=== PATIENT | male | born 1940 | race African-American/Black ===

== ENCOUNTER 2017-10-09 11:10 | Inpatient (IN) | payer OTHER ==
[~2017-10-09] VITALS: Ht 180.3 cm; Wt 72.6 kg
--- NOTE | ~2017-10-09 | HC ---
[facility] [place] [address] CONSULTATION Name: SHANNA RINCON Room #: 353-P [facility] IN M.R.#: [id number] Admission: 10/09/17 Attend Phys: Ace Yeung MD Discharge: Date of : 44 Report #: [id number] THIS REPORT FOR: //name// CC: Ace Evans DATE OF SERVICE: 10/10/2017 HISTORY OF PRESENT ILLNESS: The patient is a 77-year-old -Iranian male admitted with slurred speech, mental status changes, fall x 2, right-sided weakness. He has been seen by Neurology. MRI showed evidence of some small old strokes, bilateral lacunar infarct, old left cerebellar infarct, but no acute cerebral processes. MRA does show moderate left proximal ICA stenosis. He is being further evaluated and we are seeing him in rehabilitation medicine consultation. PAST MEDICAL HISTORY: Includes some end-stage renal disease, although he denies that he ever been on dialysis. Creatinine during this hospitalization is at 1.8 with admission 2.1. He has a history of diabetes mellitus and hypertension. He has had prior remote CVAs and has had problems with some residual left-sided weakness. MEDICATIONS: Please see the full medication listing. ALLERGIES: No known drug allergies. HABITS: No history of tobacco or alcohol abuse. SOCIAL HISTORY: Lives with sister, 15 steps to the main floor. He is a premorbid cane ambulator. Sister works roving department supervisor. REVIEW OF SYSTEMS: Denied any chest pain, shortness of breath, or abdominal discomfort. Denied any focal extremity pain complaints. Notes he is right handed. Did not offer any complaints of headaches or bowel or bladder changes. PHYSICAL EXAMINATION: GENERAL: A 77-year-old -Iranian male, in no obvious distress. VITAL SIGNS: Last recorded temperature 97.4, pulse 82, respirations 16, and blood pressure 108/58. NEUROLOGIC: The patient is alert. He has poor dentition. He follows basic commands, appeared to be able to verbalize reasonably well. EOMs appeared to be full. Facies were symmetric. EXTREMITIES: Upper extremities, he has functional range of motion of both upper extremities. Strength is grade 4-/5. DTRs are trace to 1. Lower extremities, functional range of motion with strength grade 4-/5. He did reasonably well with simultaneous stimulation of both upper and lower extremities. Sit to stand [facility] [address] [place] [address] CONSULTATION Name: SHANNA RINCON Room #: 353-P [facility] IN M.R.#: [id number] Admission: 10/09/17 Attend Phys: Ace Yeung MD Discharge: Date of : 42 Report #: [id number] was contact guard assistance and he was noted to ambulate 4 steps front-wheeled walker, min assist. ASSESSMENT: A 77-year-old -Iranian male with the following problem list: 1. Slurred speech with initial extremity weakness, which has been noted to resolve. MRI and MRA are negative for acute stroke. 2. 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 3. Chronic renal insufficiency. 4. Diabetes mellitus type 2. 5. Hypertension. PLAN: Therapy evaluations are underway. We will be glad to follow along with you regarding rehab therapy needs. <ELECTRONICALLY SIGNED> By: Buddy Tellez MD 10/11/17 1108 1240 0116 Buddy Tellez MD /PMT
--- NOTE | ~2017-10-09 | EKG ---
[address] [place] [address] ELECTROCARDIOGRAM REPORT Name: SHANNA RINCON Room #: 353-P ADM IN M.R.#: [id number] Admission: 10/09/17 Attend Phys: Ace Yeung MD Discharge: Date of : 42 Report #: [id number] THIS REPORT FOR: //name// [facility] ED Test Date: 2017-10-09 Test Time: 11:55:49 Pat Name: SHANNA RINCON Department: Room: [facility] Gender: M Director Radio: Amber CHAVEZ : 1940 Requested By: Mike Maria Order Number: [id number] MD: Ramsey Daly Measurements Intervals [place] Rate: 77 P: -43 CO: 172 QRS: -10 QRSD: 101 T: -3 QT: 385 QTc: 436 Interpretive Statements Sinus rhythm Atrial premature complex Electronically Signed On 10-09-2017 21:16:59 REAL ESTATE DEVELOPER by Ramsey Daly [email or web address] <ELECTRONICALLY SIGNED> By: Ramsey Daly MD 10/09/17 2116 1155 1155 MD FERNANDO Frost
--- NOTE | ~2017-10-09 | EEG ---
[facility] [place] [address] ELECTROENCEPHALOGRAM Name: SHANNA RINCON Room #: 353-P ADM IN M.R.#: [id number] Admission: 10/09/17 Attend Phys: Ace Yeung MD Discharge: Date of : 42 Report #: [id number] THIS REPORT FOR: //name// CC: [facility] DATE OF SERVICE: 10/10/2017 DATE OF EE10/10/2017. This patient had an episode of confusion and EEG is being done to further evaluate that. EEG was done by placing the electrodes by standard 10-20 system of electrode placement. Both referential and sequential montages were used for recording. Background activity in this patient's EEG is about 10 Hz and 40 microvolts. This patient became drowsy and that is associated with bilateral slowing and vertex sharp waves. Photic stimulation was unremarkable. Throughout the record, no active epileptiform activity was noticed. IMPRESSION: This patient's EEG is unremarkable. Thank you very much for this referral. <ELECTRONICALLY SIGNED> By: Ar Solomon MD 10/11/17 0734 56 2134 Ar Solomon MD /nt
--- NOTE | ~2017-10-09 | HC ---
[facility] [address] CONSULTATION Name: SHANNA RINCON Room #: 353-P [facility] IN M.R.#: [id number] Admission: 10/09/17 Attend Phys: Ace Yeung MD Discharge: 10/11/17 Date of : 44 Report #: [id number] THIS REPORT FOR: //name// CC: Ace Evans DATE OF SERVICE: 10/09/2017 HISTORY OF PRESENT ILLNESS: This is a 77-year-old male patient who was seen by me in the Emergency Room. Subsequently, I saw him here. He was admitted with slurred speech. His history is quite poor. Apparently, he was not able to talk and had some right-sided weakness. The speech was moderately impaired and the weakness was relatively mild. He indicates he has improved since it happened. REVIEW OF SYSTEMS: Indicate that he said he had strokes in the past. It is not clear where he went for his strokes. Earlier the family was there, but now none of the family member is here. That makes the history very difficult. It does look like he has a history of hypertension and diabetes, but he does not provide any more history in that regard. REVIEW OF SYSTEMS: A 14-point review of system was carried out from the record by talking to him and earlier when the family member was here. That was his relevant 14-point review of system. PAST MEDICAL HISTORY: Positive for stroke, but further history is not available. FAMILY HISTORY: Negative for seizures. SOCIAL HISTORY: Lives with his sister. PHYSICAL EXAMINATION: His examination was carried out multiple times. His speech has improved. His last exam indicates that he can talk. He can tell me what month it is. His memory is moderately impaired, but that I think is his baseline, but his speech has improved. 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 He moves all 4 extremities. He does not cooperate with the sensation or reflexes. He does not appear to have atrial fibrillation. He is a well-built individual who does not have any dysmorphic features of eyes, ears and face. His pulses are difficult to feel. He does not appear to be in atrial fibrillation. His blood pressure is 108/59, respiration is 24, pulse is 88. LABORATORY DATA: Indicate normal white count. His sodium is a little bit low at 135. His BUN is 34, creatinine is 2.2. His albumin is 3.3. He did have an MRI of the brain and neck and that was reviewed. MRA of the neck was not done. [address] [address] CONSULTATION Name: SHANNA RINCON Room #: 353-P [facility] IN [facility].#: [id number] Admission: 10/09/17 Attend Phys: Ace Yeung MD Discharge: 10/11/17 Date of : 42 Report #: [id number] IMPRESSION: Difficult to tell what this patient had. It is possible he had some transient ischemic attacks, also possible he had some seizures secondary to his previous strokes. We will do some further workup. RECOMMENDATION: I discussed with him in detail in the afternoon and this time and I will get an MRA. I will get an EEG. I will get some more blood workup in this patient and see what we need to do. Combining the time I spent in the ER and here more than 50 minutes of vxoe-xa-firl time was spent taking care of this patient today and majority of that time was spent counseling the patient and the family when they were available in the Emergency Room. <ELECTRONICALLY SIGNED> By: Ar Solomon MD 10/14/17 1107 [id number] Ar Solomon MD /nt
[2017-10-09 11:22] VITALS: BP 102/61
[2017-10-09 11:39] LABS: HEMOGLOBIN 9.3 gm/dL (14.0-18.0); MCV 58.2 fL (80.0-100.0)
[2017-10-09 11:41] LABS: HEMATOCRIT 31.1 % (42.0-52.0); MCH 17.5 pg (26.0-34.0); RBC 5.34 mil/uL (4.50-6.00); RDW 21.8 % (10.5-14.5); WBC 8.4 thou/uL (4.0-11.0)
[2017-10-09 11:42] LABS: ANION GAP 13 mmol/L (7-16); BUN 34 mg/dL (7-18); CALCIUM 9.9 mg/dL (8.5-10.1); CHLORIDE 100 mmol/L (98-107); CO2 22 mmol/L (21-32); CREATININE 2.1 mg/dL (0.7-1.3); SODIUM 135 mmol/L (136-145)
[2017-10-09 11:46] LABS: POC CA IONIZED 5.2 mg/dL (4.5-5.3); POC CREATININE 2.2 mg/dL (0.6-1.3); POC HEMOGLOBIN 10.2 g/dL (14.0-18.0); POC POTASSIUM 4.9 mmol/L (3.5-5.1)
[2017-10-09 11:47] LABS: GLUCOSE 116 mg/dL (74-106); MANUAL DIFF YES
[2017-10-09 11:48] LABS: PLATELET COUNT 272 thou/uL (150-400)
[2017-10-09 11:52] LABS: ALBUMIN 3.3 g/dL (3.4-5.0); ALKALINE PHOSPHATASE 92 U/L (46-116); SGOT 21 U/L (15-37); SGPT 21 U/L (30-65); TOTAL BILIRUBIN 0.2 mg/dL (<0.1-1.0); TROPONIN-I < 0.04 ng/mL (<0.06)
[2017-10-09 12:04] LABS: ABSOLUTE NEUTROPHILS 7.2 thou/uL (1.4-8.2); TOTAL CELL COUNT 100
[2017-10-09 12:05] LABS: ANISOCYTOSIS 2+; HYPOCHROMASIA 3+; MICROCYTES 3+; OVALOCYTES FEW
[2017-10-09 12:06] LABS: SCHISTOCYTES FEW
[2017-10-09] MEDS ORDERED: LISINOPRIL-HCT1 EAC2 PO (12:17)
[2017-10-09] MEDS ORDERED: CATAPRES0.2 MG PO (12:17)
[2017-10-09] MEDS ORDERED: HYDRALAZINE 2525 MG PO (12:18)
[2017-10-09] MEDS ORDERED: METFORMIN HCL500 MG PO (12:18)
[2017-10-09] MEDS ORDERED: VITAMIN D250000 UNIT PO (12:21)
[2017-10-09] MEDS ORDERED: ASPIRIN81 M2 PO (12:21)
[2017-10-09] MEDS ORDERED: CARDURA4 MG PO (12:22)
[2017-10-09] MEDS ORDERED: CLOTRIMAZOLE 1%15 G1 TOP (12:24)
[2017-10-09 13:48] VITALS: BP 100/64
[2017-10-09 14:19] VITALS: BP 98/71
[2017-10-09 14:35] VITALS: BP 118/68
[2017-10-09 19:21] VITALS: BP 108/59
[2017-10-10] VITALS (7 sets, daily range): BP systolic 96–140; BP diastolic 50–71
[2017-10-10 01:22] LABS: URINE BILIRUBIN NEGATIVE (Negative); URINE BLOOD NEGATIVE (Negative); URINE COLOR YELLOW; URINE GLUCOSE-RANDOM* NEGATIVE (Negative); URINE KETONES NEGATIVE (Negative); URINE NITRITE NEGATIVE (Negative); URINE PROTEIN (DIPSTICK) NEGATIVE (Negative); URINE UROBILINOGEN 0.2 E.U./dl (0.2-1.0)
[2017-10-10 05:56] LABS: HEMOGLOBIN 8.8 gm/dL (14.0-18.0); MCH 17.6 pg (26.0-34.0); MCHC 30.5 g/dL (28.0-37.0); MCV 57.6 fL (80.0-100.0); RBC 5.04 mil/uL (4.50-6.00); RDW 21.3 % (10.5-14.5); WBC 6.3 thou/uL (4.0-11.0)
[2017-10-10 06:04] LABS: CALCIUM 9.4 mg/dL (8.5-10.1); CREATININE 1.8 mg/dL (0.7-1.3); POTASSIUM 4.8 mmol/L (3.5-5.1)
[2017-10-10 06:41] LABS: TSH 1.251 uIU/mL (0.358-3.740)
[2017-10-11 02:09] LABS: GLYCOHEMOGLOBIN (HGB A1C) 5.6 % (4.8-5.6)
[2017-10-11 04:20] VITALS: BP 104/64
[2017-10-11 07:00] LABS: CHOLESTEROL 176 mg/dL (<200); HDL CHOLESTEROL 56 mg/dL (>40); LDL CHOLESTEROL 106 mg/dL (<100); TC:HDL 3.1 Ratio (Not establshd); TRIGLYCERIDE 71 mg/dL (<150); VLDL 14 mg/dL (<40)
[2017-10-11 07:42] VITALS: BP 134/73
[2017-10-11 11:24] VITALS: BP 130/65
[2017-10-11 15:37] VITALS: BP 125/63
[2017-10-11] MEDS ORDERED: ADULT LOW DOSE81 MG PO (17:21)
[2017-10-11] MEDS ORDERED: NICOTINE TRANSD14 M1 TRANSDERM (17:21)
[2017-10-14 14:07] LABS: SYPHILIS AB Negative (Negative)
== END 2017-10-11 18:36 | DRG 91 ==
LOC: ER 11:10 → EROBS 13:25 → 3W 13:25
PROVIDERS: Hospitalist; Physician Assistant; Psychiatry & Neurology Neuromuscular Medicine
DX: R47.81 Slurred speech (principal); N17.0 Acute kidney failure with tubular necrosis; I12.0 Hypertensive chronic kidney disease with stage 5 chronic kidney disease or end stage renal disease; I69.354 Hemiplegia and hemiparesis following cerebral infarction affecting left non-dominant side; E11.22 Type 2 diabetes mellitus with diabetic chronic kidney disease; D64.9 Anemia, unspecified; F17.210 Nicotine dependence, cigarettes, uncomplicated; I65.22 Occlusion and stenosis of left carotid artery; Z91.81 History of falling
CPT/HCPCS: 10779

== ENCOUNTER 2017-11-12 12:27 | Inpatient (IN) | payer OTHER ==
[~2017-11-12] VITALS: Ht 180.3 cm; Wt 73.0 kg
--- NOTE | ~2017-11-12 | HC ---
[facility] [place] [address] CONSULTATION Name: SHANNA RINCON Room #: 404-P [facility] IN M.R.#: [id number] Admission: 11/12/17 Attend Phys: Cristóbal Redman MD Discharge: 11/15/17 Date of : 42 Report #: [id number] THIS REPORT FOR: //name// CC: Abe Redman DATE OF SERVICE: 11/12/2017 HISTORY OF PRESENT ILLNESS: This is a 77-year-old male patient who was admitted with an episode of syncope. This patient was getting occupational therapy when he passed out. There is no tonic-clonic activity noted, but he was dazed for some time. He got fed up and he did not want to do the further testing. His stroke was on the left side when it happened. Today, it was more episode of passing out, one was in sitting position, one was in lying down position and he was unresponsive for a few minutes. No tonic-clonic activity was noticed. He feels back to his baseline now. REVIEW OF SYSTEMS: Indicate that this patient had a stroke. He was in the hospital with left-sided weakness. At that time, he had multiple testing done. He had an MRI, which demonstrates old strokes, but no acute strokes. He did have a carotid Doppler, which showed about 60% stenosis, similar finding was noticed on the MRA. As mentioned above, he refused further testing. I do not see any echocardiogram in his chart and that was probably not done because he refused further testing. This patient was subsequently sent to rehab and he did reasonably well there. REVIEW OF SYSTEMS: Positive for stroke. There had been a question of seizure versus encephalopathy in this patient. I carried out 14-point review of systems partly from him, partly from the record and that was his relevant 14-point review of system. Presently, he also has renal problems and his blood pressure is running low. He is going to be seen by Renal. He had prior CVA with left-sided weakness. PAST MEDICAL HISTORY: Positive for stroke. FAMILY HISTORY: Negative for early age stroke. SOCIAL HISTORY: He does not smoke or drink any alcohol. PHYSICAL EXAMINATION: Indicate that he is alert. He is responsive. He is oriented. His speech, concentration, fund of knowledge and memory is about the same. Cranial nerve examination 2-12 was attempted. His cooperation is poor, but I do not see much focality there. He is somewhat weak in the left side, but that is his baseline. His tone looks symmetrical. His reflexes are symmetrical. He has no meningeal sign. There is no cerebellar sign. I could not look at the fundus because he could not cooperate. He is moderately-built [facility] [address] [place] [address] CONSULTATION Name: SHANNA RINCON Room #: 404-P [facility] IN M.R.#: [id number] Admission: 11/12/17 Attend Phys: Cristóbal Redman MD Discharge: 11/15/17 Date of : 42 Report #: [id number] individual who does not have any dysmorphic features of eyes, ears and face. His vision and hearing looks adequate. His cardiac examination does not appear to be showing any atrial fibrillation or abnormality of the heart sound. He had no respiratory difficulty or rhonchi. His pulses are difficult to feel. He has no edema, cyanosis or jaundice. His blood pressure is 117/65, pulse is 85, temperature is not taken and oxygen saturation is 100%. LABORATORY DATA: Indicate sodium of 137 and he did have labs during last time with a normal B12 and thyroid function test. IMPRESSION: This episode was most likely related to the patient's hypertension and renal failure. Sister says that he does not drink enough fluid. That is what I think we need to work on at the moment. I will get an EEG done and if EEG shows some seizure activity, then we will give him some medication. I will reassess that need tomorrow. RECOMMENDATIONS: 1. EEG. 2. We cannot do any further workup in this patient at the moment because of kidney failure. 3. Sometime along the line, he should be referred to the vascular surgeon for monitoring of his carotid stenosis. 4. We will see how he does with the hydration depending upon EEG, may or may not give him a trial with seizure medication. Thank you very much for this referral and if you have any question, please feel free to contact me. <ELECTRONICALLY SIGNED> By: Ar Solomon MD 11/18/17 1815 1728 00 Ar Solomon MD /nt
--- NOTE | ~2017-11-12 | H ---
[facility] [place] [address] HISTORY AND PHYSICAL Name: SHANNA RINCON Room #: 170-9 ADM IN M.R.#: [id number] Admission: 11/12/17 Attend Phys: Cristóbal Redman MD Discharge: Date of : 42 Report #: [id number] THIS REPORT FOR: //name// CC: Abe Redman DATE OF SERVICE: 11/12/2017 CHIEF COMPLAINT: Dizziness and syncope. HISTORY OF PRESENT ILLNESS: The patient is a 77-year-old male with history of hypertension, diabetes, history of CVA in the past, who was recently admitted here at [facility] for left-sided weakness, slurred speech, and fall and discharged from rehabilitation center on 10/23/2017, was brought into the Emergency Room because of a syncopal episode. The patient was originally admitted at [facility] with slurred speech, mental status changes, fall and right-sided weakness. He was seen by neurologist. The MRI showed evidence of small old stroke, bilateral lacunar stroke. MRA showed moderate left proximal ICA stenosis. Clinically, he had encephalopathy with cognitive changes. The patient also had issues with dysphagia at that time. The patient was then transferred to a rehab center and discharged on 10/23/2017. The patient was on mechanical soft/thin liquid at that time. Apparently today, the patient was working with the occupational therapist when he felt dizzy, lightheaded and then, he passed out. During the first episode, the patient fell from the standing position; the second episode, he just slid off his bed. He was staring and he was unresponsive for a few minutes according to the family. The patient has chronic left-sided weakness. He says his left leg is weaker than usual. Denies any headache, no visual changes, denies any chest pain at present. No shortness of breath. No fever or chills. PAST MEDICAL HISTORY: Significant for CVA with left-sided weakness, chronic renal disease, diabetes, hypertension, chronic bilateral lacunar infarct by MRI, chronic left lateral cerebral artery infarct. No history of any peptic ulcer disease or bleeding disorder. SOCIAL HISTORY: No smoking, alcohol abuse or anything or drug abuse. The patient lives with his sister, normally walks with help of a walker. According to the patient's sister, the patient has been noncompliant with his medication. FAMILY HISTORY: Significant for hypertension. REVIEW OF SYSTEMS: CONSTITUTIONAL: He denies any recent weight loss or weight gain. No fever or chills. EYES: [place] [address] HISTORY AND PHYSICAL Name: SHANNA RINCON Room #: 1709 [facility] IN ..#: [id number] Admission: 11/12/17 Attend Phys: Cristóbal Redman MD Discharge: Date of : 42 Report #: [id number] THROAT: Denies any sore throat. CARDIOVASCULAR: As above. RESPIRATORY: No cough or expectoration. GASTROINTESTINAL: No nausea, vomiting, abdominal pain. GENITOURINARY: No dysuria, hematuria. Denies any urinary hesitancy. NEUROLOGIC: As above. PSYCHIATRIC: No anxiety or depression. A 12-point review of system is negative other than the positive and the negative dictated in the history of present illness and the review of systems. PHYSICAL EXAMINATION: VITAL SIGNS: Blood pressure is 117/65, heart rate is 85 per minute, afebrile. GENERAL: The patient is awake and alert, not in acute respiratory distress. EYES: Pupils are equal and reactive to light. Pupils are around 1.5 mm. THROAT: He has a dry oral mucosa. NECK: Supple, no JVD, no bruit, no lymphadenopathy. CARDIOVASCULAR SYSTEM: S1, S2, no S3, no murmur. CHEST: Bilateral air entry present. Clear on auscultation. ABDOMEN: Soft, bowel sounds present, no mass, no organomegaly, no tenderness. PERIPHERY: No pedal edema. No calf tenderness. Dorsalis pedis 1+ bilaterally. NEUROLOGICAL: No facial asymmetry noted. Pupils equal, reactive to light. Extraocular movements intact. Power is 5/5 in the upper extremity. Power is 3-4/5 in the left leg, 5/5 in the right leg. LABORATORY DATA: Reviewed. A CT of the brain showed no evidence of any bleed. There is no evidence of any new stroke. There are evidence of chronic small vessel ischemic changes and chronic infarct in the anterior left cerebellar hemisphere and lacunar infarct in the basal ganglia. His BUN and creatinine are significantly elevated at 63 and 2.7. His BUN and creatinine on 10/23/2017 were 30 and 1.8. Calcium is 10.4, glucose is 134. PT, PTT are within normal limit. White count is 6.7, hemoglobin is 8.9. Hemoglobin was 8.8 on 10/23/2017. He did have anemia before, platelet is 203. EKG showed normal sinus rhythm, no significant changes. Then, he had a chest x-ray done, which showed no acute cardiopulmonary process. He had workup done last admission on 10/10/2017. His renal ultrasound was normal. He had an MRI of the brain, which showed evidence of old superior left cerebral lacunar infarct. No acute cerebral process. ASSESSMENT AND PLAN: 1. Episodes of syncope, dizziness. Most likely secondary to orthostatic hypotension. The patient's blood pressure has been running a little bit on the low end in the Emergency Room. The patient will be hydrated with IV fluid. We will closely monitor his orthostatic vital signs. We will discontinue his antihypertensive medication at present. 2. Acute renal failure. His baseline creatinine is 1.7. His creatinine is [facility] [address] [place] [address] HISTORY AND PHYSICAL Name: SHANNA RINCON Room #: 170-9 [facility] IN ..#: [id number] Admission: 11/12/17 Attend Phys: Cristóbal Redman MD Discharge: Date of : 42 Report #: [id number] markedly elevated today to 2.7. The patient will be hydrated with IV fluid and repeat of his labs in the morning. We will consult Nephrology. We will also obtain a bladder scan. 3. Possible urinary tract infection. We will obtain postvoid bladder scan. We will also continue with IV ceftriaxone, follow urine culture and adjust antibiotic as needed. 4. Left leg weakness could be secondary to his previous stroke. We will obtain an MRI to rule out any new stroke. He will be continued on aspirin. Neurologist will also be consulted. 5. Deep venous thrombosis prophylaxis. He will be placed on SCD on the leg for deep venous thrombosis prophylaxis. 6. History of hypertension. We will hold off on lisinopril/hydrochlorothiazide secondary to his acute renal failure. His blood pressure is also on the low end at present. 7. Diabetes. We will discontinue metformin because of his renal failure. We will follow blood sugars and cover with sliding scale insulin. We will check on A1c level and the lipids. Treatment plan has been explained to the patient and family at bedside in detail. <ELECTRONICALLY SIGNED> By: Cristóbal Redman MD 11/12/17 1709 1601 1628 Cristóbal Redman MD /nt
--- NOTE | ~2017-11-12 | 2DMMODE ---
[facility] [address] [place] [address] 2 D/M-MODE ECHOCARDIOGRAM Name: SHANNA RINCON Room #: 404-P ADM IN M.R.#: [id number] Admission: 11/12/17 Attend Phys: Gloria Valdes Discharge: Date of : 44 Date of Service: 11/13/17 0954 Report #: [id number] THIS REPORT FOR: //name// APPROVED REPORT Study performed: 11/13/2017 09:01:39 EXAM: Comprehensive 2D, Doppler, and color-flow Echocardiogram Patient Location: Bedside Room #: 404 Status: routine BSA: 1.90 HR: 80 bpm BP: 129/78 mmHg Other Information Study Quality: Adequate Indications Diabetes Dizziness and Vertigo Syncope Hypertension/HDD 2D Dimensions RVDd: 30.74 mm LVEF(%): 63.70 (>50%) IVSd: 11.50 (7-11mm) LVOT Diam: 20.94 (18-24mm) LVDd: 40.27 mm PWd: 12.43 (7-11mm) Ascending Ao: 34.49 (22-36mm) LVDs: 26.51 (25-40mm) Aortic Root: 30.69 mm IVC: 19.00 mm Bee's LVEF: 63.70 % Volumes Left Atrial Volume (Systole) Single Plane 4CH: 50.32 mL Single Plane 2CH: 38.17 mL LA ESV Index: 26.00 mL/m2 Aortic Valve AoV Peak Sebastián.: 1.10 m/s AO Peak Gr.: 4.88 mmHg LVOT Max P.70 mmHg LVOT Max V: 0.96 m/s ARI Vmax: 3.00 cm2 Mitral Valve [facility] [address] [place] [address] 2 D/M-MODE ECHOCARDIOGRAM Name: SHANNA RINCON Room #: 404-P [facility] IN .R.#: [id number] Admission: 11/12/17 Attend Phys: Gloria Valdes Discharge: Date of : 44 Date of Service: 11/13/17 0954 Report #: [id number] E/A Ratio: 0.8 MV Decel. Time: 217.10 ms MV E Max Sebastián.: 0.84 m/s MV A Sebastián.: 1.01 m/s MV PHT: 62.96 ms IVRT: 115.34 ms Pulmonary Valve PV Peak Sebastián.: 1.00 m/s PV Peak Gr.: 4.00 mmHg Pulmonary Vein P Vein S: 0.40 m/s P Vein A: 0.24 m/s P Vein D: 0.27 m/s P Vein A Dur.: 78.4 msec P Vein S/D Ratio: 1.48 Tricuspid Valve TR Peak Sebastián.: 2.60 m/s TR Peak Gr.: 26.98 mmHg PA Pressure: 32.00 mmHg Left Ventricle The left ventricle is normal size. Mild concentric left ventricular hypertrophy. The left ventricular systolic function is normal. The left ventricular ejection fraction is within the normal range. LVEF is 60-65%. Grade I - abnormal relaxation pattern. Right Ventricle The right ventricle is normal size. The right ventricular systolic function is normal. Atria The left atrium size is normal. The right atrium size is normal. Aortic Valve The aortic valve is normal in structure. Aortic valve is mildly thickened. No aortic regurgitation is present. There is no aortic valvular stenosis. Mitral Valve The mitral valve is normal in structure. Mild mitral regurgitation. No evidence of mitral valve stenosis. Tricuspid Valve The tricuspid valve is normal in structure. There is trace tricuspid regurgitation. Estimated PAP 32 mmHg. There is mild pulmonary [facility] [address] [place] [address] 2 D/M-MODE ECHOCARDIOGRAM Name: SHANNA RINCON Room #: 404-P [facility] IN .R.#: [id number] Admission: 11/12/17 Attend Phys: Gloria Valdes Discharge: Date of : 44 Date of Service: 11/13/17 0954 Report #: [id number] hypertension. Pulmonic Valve The pulmonary valve is normal in structure. There is no pulmonic valvular regurgitation. Great Vessels The aortic root is normal in size. IVC is normal in size and collapses >50% with inspiration. Pericardium There is no pericardial effusion. <Conclusion> The left ventricle is normal size. LVEF is 60-65%. The aortic valve is normal in structure. Aortic valve is mildly thickened. No aortic regurgitation is present. There is no aortic valvular stenosis. The mitral valve is normal in structure. Mild mitral regurgitation. The tricuspid valve is normal in structure. There is trace tricuspid regurgitation. Estimated PAP 32 mmHg. There is mild pulmonary hypertension. The pulmonary valve is normal in structure. There is no pericardial effusion. <ELECTRONICALLY SIGNED> By: Paulino Peralta MD 11/13/17 0954 0954 0954 Paulino Peralta MD /INF
--- NOTE | ~2017-11-12 | EKG ---
[address] [address] ELECTROCARDIOGRAM REPORT Name: SHANNA RINCON Room #: 170-9 ADM IN M.R.#: [id number] Admission: 11/12/17 Attend Phys: Cristóbal Redman MD Discharge: Date of : 44 Report #: [id number] THIS REPORT FOR: //name// [facility] ED Test Date: 2017-11-12 Test Time: 12:50:46 Pat Name: SHANNA RINCON Department: Room: 170 Gender: M Loading Machine Adjuster: NICOLLE : 1940 Requested By: Yuri Adam Order Number: [id number] MD: Ramsey Daly Measurements Intervals [place] Rate: 89 P: 79 FL: 163 QRS: 64 QRSD: 82 T: 65 QT: 351 QTc: 428 Interpretive Statements Sinus rhythm Compared to ECG 10/09/2017 11:55:49 Atrial premature complex(es) no longer present Electronically Signed On 11-12-2017 15:33:28 TIP FIXER by Ramsey Daly [email or web address] <ELECTRONICALLY SIGNED> By: Ramsey Daly MD 11/12/17 1533 1250 1250 Ramsey Daly MD /MANUELITO
--- NOTE | ~2017-11-12 | HC ---
[facility] [place] [address] CONSULTATION Name: SHANNA RINCON Room #: 404-P [facility] IN M.R.#: [id number] Admission: 11/12/17 Attend Phys: Cristóbal Redman MD Discharge: 11/15/17 Date of : 44 Report #: [id number] THIS REPORT FOR: //name// CC: Abe Redman DATE OF SERVICE: 11/12/2017 ATTENDING PHYSICIAN: Cristóbal Redman MD. REASON FOR CONSULTATION: Acute on chronic kidney disease. HISTORY OF PRESENT ILLNESS: This patient is followed by a tuyere fitter at a different hospital chronically as an outpatient with CKD and a baseline creatinine of about 2. He was recently hospitalized at this hospital with the sequelae of frequent lacunar strokes, mental status changes, underwent a rehab stay, improved and went home, but has gradually deteriorated. He has been home for about 2-1/2 weeks, has gotten weaker and more confused with increasing disabilities, a couple of presyncopal episodes today and he is readmitted. PAST MEDICAL HISTORY: Multiple previous strokes with cognitive impairment, both chronic and acute; longstanding hypertension; chronic kidney disease; history of diabetes; previous left lateral cerebral infarcts. SOCIAL HISTORY: He is a heavy smoker, has been smoking, now has been on a nicotine patch since his last admission a couple of weeks ago. FAMILY HISTORY: Positive for hypertension. REVIEW OF SYSTEMS: GENERAL: He has been failing. EYES: His vision has been okay. ENT: Hearing okay, swallows okay. ENDOCRINE: Positive for diabetes. RESPIRATORY: Easily short-winded with diagnosis of chronic emphysema. CARDIAC: No history of coronary disease, heart failure, or palpitations. GASTROINTESTINAL: Appetite has been somewhat poor. GENITOURINARY: Denies dysuria or hematuria. NEUROLOGIC: Multiple strokes as mentioned, difficulty walking and getting around, uses a cane, really needs a walker. PHYSICAL EXAMINATION: GENERAL: This is a chronically ill-appearing, somewhat confused gentleman, in no acute distress. SKIN: Unremarkable. SKELETAL: Elderly, frail-appearing. [facility] [address] [place] [address] CONSULTATION Name: SHANNA RINCON Room #: 404-P [facility] IN M.R.#: [id number] Admission: 11/12/17 Attend Phys: Cristóbal Redman MD Discharge: 11/15/17 Date of : 44 Report #: [id number] HEENT: Extraocular movements are full, sclerae are muddy. Mucous membranes are dry. NECK: Supple. Neck veins are a bit distended. CHEST: Shows diminished breath sounds. HEART: Regular. ABDOMEN: Soft and nontender. EXTREMITIES: Show trace brawny lower extremity edema. LABORATORY DATA: Hemoglobin is 8.9, white count 6.7, platelets 203. Urinalysis shows bacteria and some white cells. Sodium 137, potassium 4.3, chloride 103, bicarbonate 25, , at the time of last discharge. X-rays include CT of the head without contrast, which was personally reviewed, showed no acute intracranial process. A chest x-ray, which was clear. ASSESSMENT: 1. Acute on chronic kidney disease. He appears to have some degree of volume depletion. His blood pressure is on the low side after having chronic hypertension. Blood pressure medications will be held. IV fluids will be given, some gentle saline. 2. Multiple strokes with cognitive impairment. 3. Presyncopal episodes. His blood pressure appears to have been over-controlled and we will be cutting back on his blood pressure medications. 4. Emphysema with cigarette smoking. Nicotine patch 14 mg per day has been prescribed. <ELECTRONICALLY SIGNED> By: Robin Kinsey MD 11/17/17 1609 1844 2244 Robin Kinsey MD /nt
[~2017-11-12 12:27] MED LIST: ADULT LOW DOSE81 MG PO; ASPIRIN81 M2 PO; CARDURA4 MG PO; CATAPRES0.2 MG PO; CLARITIN10 MG PO; CLOTRIMAZOLE 1%15 G1 TOP; FLONASE 0.05%50 MCG NASAL; HYDRALAZINE 2525 MG PO; LISINOPRIL-HCT1 EAC2 PO; MELATONIN5 M1 PO; METFORMIN HCL500 MG PO; NICOTINE TRANSD14 M1 TRANSDERM; PROTONIX 20 MG20 M1 PO; VITAMIN D250000 UNIT PO
[2017-11-12 12:32] VITALS: BP 112/62
[2017-11-12 13:38] LABS: HEMATOCRIT 29.2 % (42.0-52.0); HEMOGLOBIN 8.9 gm/dL (14.0-18.0); MCH 16.9 pg (26.0-34.0); MCHC 30.5 g/dL (28.0-37.0); MCV 55.4 fL (80.0-100.0); RBC 5.27 mil/uL (4.50-6.00); RDW 21.5 % (10.5-14.5); WBC 6.7 thou/uL (4.0-11.0)
[2017-11-12 13:41] LABS: ANION GAP 9 mmol/L (7-16); BUN 63 mg/dL (7-18); CALCIUM 10.4 mg/dL (8.5-10.1); CHLORIDE 103 mmol/L (98-107); CO2 25 mmol/L (21-32); CREATININE 2.7 mg/dL (0.7-1.3); GLUCOSE 134 mg/dL (74-106); POTASSIUM 4.3 mmol/L (3.5-5.1); SODIUM 137 mmol/L (136-145)
[2017-11-12 13:50] LABS: TROPONIN-I < 0.04 ng/mL (<0.06)
[2017-11-12 13:51] LABS: APTT 28.7 Seconds (24.5-32.8)
[2017-11-12 14:29] LABS: URINE BILIRUBIN NEGATIVE (Negative); URINE BLOOD NEGATIVE (Negative); URINE CLARITY CLEAR; URINE COLOR YELLOW; URINE GLUCOSE-RANDOM* NEGATIVE (Negative); URINE KETONES NEGATIVE (Negative); URINE NITRITE-REFLEX NEGATIVE (Negative); URINE PROTEIN (DIPSTICK) NEGATIVE (Negative); URINE SPECIFIC GRAVITY 1.025 (1.005-1.035); URINE UROBILINOGEN 0.2 E.U./dl (0.2-1.0)
[2017-11-12 14:33] LABS: URINE LEUKOCYTES-REFLEX 1+ (Negative)
[2017-11-12 14:47] LABS: BACTERIA-REFLEX 1-9 Few /HPF (None Seen); CASTS None Seen /LPF (None Seen); CRYSTALS None Seen /LPF (None Seen); SQUAMOUS 0-3 Few /LPF (0-3); URINE RBC None Seen /HPF (0-2); URINE WBC-REFLEX 6-15 Few /HPF (0-5)
[2017-11-12 17:56] VITALS: BP 106/65
[2017-11-12 20:00] VITALS: BP 110/72
[2017-11-13 04:00] VITALS: BP 129/78
[2017-11-13 05:18] LABS: HEMATOCRIT 28.2 % (42.0-52.0); WBC 5.6 thou/uL (4.0-11.0)
[2017-11-13 05:20] LABS: HEMOGLOBIN 8.7 gm/dL (14.0-18.0); MCHC 30.9 g/dL (28.0-37.0); MCV 55.1 fL (80.0-100.0); RBC 5.12 mil/uL (4.50-6.00); RDW 21.7 % (10.5-14.5)
[2017-11-13 05:46] LABS: ANION GAP 8 mmol/L (7-16); BUN 49 mg/dL (7-18); CALCIUM 9.8 mg/dL (8.5-10.1); CHLORIDE 107 mmol/L (98-107); CHOLESTEROL 204 mg/dL (<200); CO2 25 mmol/L (21-32); CREATININE 1.8 mg/dL (0.7-1.3); GLUCOSE 85 mg/dL (74-106); HDL CHOLESTEROL 71 mg/dL (>40); LDL CHOLESTEROL 124 mg/dL (<100); MAGNESIUM 2.1 mg/dL (1.8-2.4); PHOSPHORUS 4.2 mg/dL (2.5-4.9); POTASSIUM 4.8 mmol/L (3.5-5.1); SODIUM 140 mmol/L (136-145); TC:HDL 2.9 Ratio (Not establshd); TRIGLYCERIDE 46 mg/dL (<150); VLDL 9 mg/dL (<40)
[2017-11-13 05:55] LABS: SERUM ASSESSMENT Clear
[2017-11-13 07:50] LABS: ABSOLUTE NEUTROPHILS 3.2 thou/uL (1.4-8.2); ANISOCYTOSIS 2+; HYPOCHROMASIA 3+; MICROCYTES 3+; SCHISTOCYTES FEW
[2017-11-13 07:51] LABS: PLATELET COUNT 208 thou/uL (150-400)
[2017-11-13 08:00] VITALS: BP 110/74
[2017-11-13 15:48] VITALS: BP 129/74
[2017-11-13 20:00] VITALS: BP 128/83
[2017-11-14] VITALS: BP 131/78
[2017-11-14 04:00] VITALS: BP 147/85
[2017-11-14 06:17] LABS: ALBUMIN 2.9 g/dL (3.4-5.0); CALCIUM 9.4 mg/dL (8.5-10.1); CREATININE 1.3 mg/dL (0.7-1.3); PHOSPHORUS 3.2 mg/dL (2.5-4.9); POTASSIUM 4.9 mmol/L (3.5-5.1)
[2017-11-14 07:39] VITALS: BP 143/91
[2017-11-14] MEDS ORDERED: CEFUROXIME250 MG PO (10:34)
[2017-11-14 16:22] VITALS: BP 132/84
[2017-11-14 19:42] VITALS: BP 140/83
[2017-11-15 04:40] VITALS: BP 148/86
[2017-11-15 09:46] VITALS: BP 121/70
[2017-11-15 15:43] VITALS: BP 142/89
[2017-11-15 16:46] VITALS: BP 142/89
== END 2017-11-15 17:10 | disposition home health service (06) | DRG 683 ==
LOC: ER 12:27 → EROBS 15:09 → 4N 15:09 → ENTRNSPT 11-15 17:00 → 4N 11-15 17:10
PROVIDERS: Emergency Medicine; Hospitalist; Internal Medicine
DX: N17.0 Acute kidney failure with tubular necrosis (principal); N39.0 Urinary tract infection, site not specified; I69.354 Hemiplegia and hemiparesis following cerebral infarction affecting left non-dominant side; I12.0 Hypertensive chronic kidney disease with stage 5 chronic kidney disease or end stage renal disease; I95.1 Orthostatic hypotension; N18.6 End stage renal disease; E11.22 Type 2 diabetes mellitus with diabetic chronic kidney disease; G31.84 Mild cognitive impairment of uncertain or unknown etiology; J43.9 Emphysema, unspecified; E86.9 Volume depletion, unspecified; D64.9 Anemia, unspecified; Z79.82 Long term (current) use of aspirin; Z79.899 Other long term (current) drug therapy; Z82.49 Family history of ischemic heart disease and other diseases of the circulatory system
CPT/HCPCS: 10790

== ENCOUNTER 2018-03-19 13:15 | Inpatient (IN) | payer OTHER ==
[~2018-03-19] VITALS: Ht 180.3 cm; Wt 72.1 kg
--- NOTE | ~2018-03-19 | EKG ---
[address] [address] ELECTROCARDIOGRAM REPORT Name: SHANNA RINCON Room #: 349-I ADM IN M.R.#: [id number] Admission: 03/19/18 Attend Phys: Cristóbal Redman MD Discharge: Date of : 44 Report #: [id number] THIS REPORT FOR: //name// [facility] ED Test Date: 2018-03-19 Test Time: 15:00:37 Pat Name: SHANNA RINCON Department: Room: Gender: M Extension Service Advisor: rchampinw : 1940 Requested By: Luca Jackson Order Number: [id number] MD: Ramsey Daly Measurements Intervals [place] Rate: 82 P: 75 DE: 172 QRS: 55 QRSD: 91 T: 69 QT: 373 QTc: 436 Interpretive Statements Sinus rhythm Compared to ECG 11/12/2017 12:50:46 No significant changes Electronically Signed On 03-19-2018 17:06:09 CDT by Ramsey Daly [email or web address] <ELECTRONICALLY SIGNED> By: Ramsey Daly MD 03/19/18 1706 1500 Gris Daly MD /MANUELITO
[~2018-03-19 13:15] MED LIST changes: +CEFUROXIME250 MG PO
[2018-03-19 13:19] VITALS: BP 88/51
[2018-03-19 14:23] LABS: ANION GAP 6 mmol/L (7-16); BUN 40 mg/dL (7-18); CALCIUM 9.2 mg/dL (8.5-10.1); CHLORIDE 102 mmol/L (98-107); CO2 26 mmol/L (21-32); CREATININE 2.5 mg/dL (0.7-1.3); GLUCOSE 90 mg/dL (74-106); POTASSIUM 4.5 mmol/L (3.5-5.1); SODIUM 134 mmol/L (136-145)
[2018-03-19 14:26] LABS: HEMATOCRIT 23.5 % (42.0-52.0); MCH 12.9 pg (26.0-34.0); MCHC 26.6 g/dL (28.0-37.0); PLATELET COUNT 184 thou/uL (150-400); RBC 4.84 mil/uL (4.50-6.00); RDW 25.1 % (10.5-14.5); WBC 6.6 thou/uL (4.0-11.0)
[2018-03-19 14:27] LABS: MCV 48.6 fL (80.0-100.0)
[2018-03-19 14:29] LABS: HEMOGLOBIN 6.3 gm/dL (14.0-18.0)
[2018-03-19 14:32] LABS: ALBUMIN 3.1 g/dL (3.4-5.0); SGOT 23 U/L (15-37); SGPT 19 U/L (30-65); TOTAL BILIRUBIN 0.2 mg/dL (<0.1-1.0); TOTAL PROTEIN 6.7 g/dL (6.4-8.2); TROPONIN-I < 0.04 ng/mL (<0.06)
[2018-03-19 15:03] LABS: ANISOCYTOSIS 3+
[2018-03-19 15:04] LABS: BURR CELLS 1+; HYPOCHROMASIA 3+; MICROCYTES 3+; OVALOCYTES OCCASIONAL; POIKILOCYTOSIS 3+; POLYCHROMASIA 2+; SCHISTOCYTES 2+; TARGET CELLS 2+; TEARDROPS OCCASIONAL
[2018-03-19 15:18] VITALS: BP 112/67
[2018-03-19 16:27] LABS: % SATURATION 3 % (20-39); IRON 11 ug/dL (65-175); TIBC 334 ug/dL (250-450)
[2018-03-19 16:35] VITALS: BP 109/61
[2018-03-19 16:36] VITALS: BP 109/61
[2018-03-19] MEDS ORDERED: ROBITUSSIN100 MG/53 PO (17:21)
[2018-03-19] MEDS ORDERED: CLONIDINE0.1 PO (17:26)
[2018-03-19] MEDS ORDERED: CARDURA4 MG PO (17:27)
[2018-03-19] MEDS ORDERED: LISINOPRIL2.5 MG PO (17:27)
[2018-03-19] MEDS ORDERED: HYDROCHLOROTHIA25 M2 PO (17:29)
[2018-03-19] MEDS ORDERED: CLARITIN10 MG PO (17:30)
[2018-03-19] MEDS ORDERED: LISINOPRIL20 MG PO (17:30)
[2018-03-19] MEDS ORDERED: PROTONIX 20 MG20 M1 PO (17:30)
[2018-03-19] MEDS ORDERED: METFORMIN HCL500 MG PO (17:30)
[2018-03-19] MEDS ORDERED: MELATONIN5 M4 PO (17:31)
[2018-03-19 19:00] VITALS: BP 133/69
[2018-03-19 20:26] VITALS: BP 101/50; BP 108/62
[2018-03-20 00:42] VITALS: BP 112/72; BP 118/68; BP 133/71
[2018-03-20 04:05] VITALS: BP 116/60
[2018-03-20 07:27] VITALS: BP 112/61
[2018-03-20 09:39] LABS: WBC 7.6 thou/uL (4.0-11.0)
[2018-03-20 09:41] LABS: MCH 16.6 pg (26.0-34.0); RBC 5.59 mil/uL (4.50-6.00); RDW 36.6 % (10.5-14.5)
[2018-03-20 09:43] LABS: HEMOGLOBIN 9.3 gm/dL (14.0-18.0); MCV 57.2 fL (80.0-100.0)
[2018-03-20 09:45] LABS: CALCIUM 8.8 mg/dL (8.5-10.1); CREATININE 1.7 mg/dL (0.7-1.3); MAGNESIUM 1.9 mg/dL (1.8-2.4); POTASSIUM 4.9 mmol/L (3.5-5.1)
[2018-03-20 10:04] LABS: ABSOLUTE NEUTROPHILS 4.7 thou/uL (1.4-8.2); PLATELET COUNT 199 thou/uL (150-400); PLATELET ESTIMATE NORMAL
[2018-03-20 10:05] LABS: ANISOCYTOSIS 2+; HYPOCHROMASIA 2+; MICROCYTES 2+; SCHISTOCYTES FEW
[2018-03-20 15:28] VITALS: BP 129/76
[2018-03-20 19:15] VITALS: BP 146/80
[2018-03-21 00:10] VITALS: BP 116/67
[2018-03-21 04:50] VITALS: BP 136/76
[2018-03-21 06:08] LABS: HEMOGLOBIN 9.2 gm/dL (14.0-18.0); MCH 15.8 pg (26.0-34.0); MCHC 27.8 g/dL (28.0-37.0); MCV 56.8 fL (80.0-100.0); RBC 5.81 mil/uL (4.50-6.00); RDW 36.3 % (10.5-14.5); WBC 12.5 thou/uL (4.0-11.0)
[2018-03-21 06:17] LABS: CALCIUM 9.1 mg/dL (8.5-10.1); CREATININE 1.3 mg/dL (0.7-1.3); MAGNESIUM 1.9 mg/dL (1.8-2.4); POTASSIUM 4.2 mmol/L (3.5-5.1)
[2018-03-21 07:20] VITALS: BP 137/81
[2018-03-21 08:27] LABS: ANISOCYTOSIS 2+; HYPOCHROMASIA 1+; MICROCYTES 3+; PLATELET COUNT 219 thou/uL (150-400)
[2018-03-21 11:35] VITALS: BP 129/80
[2018-03-21 15:49] VITALS: BP 111/59
[2018-03-21 19:45] VITALS: BP 130/67
[2018-03-22 03:28] LABS: HEMATOCRIT 30.3 % (42.0-52.0); MCV 56.6 fL (80.0-100.0); RBC 5.35 mil/uL (4.50-6.00)
[2018-03-22 03:31] LABS: HEMOGLOBIN 8.6 gm/dL (14.0-18.0); MCH 16.1 pg (26.0-34.0); MCHC 28.4 g/dL (28.0-37.0); RDW 36.7 % (10.5-14.5); WBC 9.8 thou/uL (4.0-11.0)
[2018-03-22 03:42] LABS: CALCIUM 9.5 mg/dL (8.5-10.1); CREATININE 1.4 mg/dL (0.7-1.3); MAGNESIUM 1.9 mg/dL (1.8-2.4); POTASSIUM 3.8 mmol/L (3.5-5.1)
[2018-03-22 04:14] LABS: ABSOLUTE NEUTROPHILS 7.2 thou/uL (1.4-8.2); ANISOCYTOSIS 4+; HYPOCHROMASIA 3+; POLYCHROMASIA 1+
[2018-03-22 04:15] LABS: LARGE PLATELETS SEVERAL; PLATELET COUNT 216 thou/uL (150-400)
[2018-03-22 04:16] LABS: TARGET CELLS OCCASIONAL
[2018-03-22 04:17] LABS: MACROCYTES 1+; MICROCYTES 2+
[2018-03-22 04:55] VITALS: BP 128/66
[2018-03-22 07:53] VITALS: BP 137/79
[2018-03-22 11:04] VITALS: BP 124/74
[2018-03-22 15:35] VITALS: BP 119/74
[2018-03-22 20:11] VITALS: BP 138/77
[2018-03-23 04:23] VITALS: BP 131/77
[2018-03-23 08:00] VITALS: BP 120/77
[2018-03-23 08:34] LABS: HEMATOCRIT 33.5 % (42.0-52.0); HEMOGLOBIN 9.5 gm/dL (14.0-18.0); MCH 16.1 pg (26.0-34.0); MCHC 28.3 g/dL (28.0-37.0); MCV 56.8 fL (80.0-100.0); RBC 5.9 mil/uL (4.50-6.00); RDW 38.6 % (10.5-14.5); WBC 11.5 thou/uL (4.0-11.0)
[2018-03-23 08:50] LABS: ALBUMIN 2.9 g/dL (3.4-5.0); CALCIUM 9.4 mg/dL (8.5-10.1); CREATININE 1.5 mg/dL (0.7-1.3); MAGNESIUM 1.8 mg/dL (1.8-2.4); POTASSIUM 4.1 mmol/L (3.5-5.1); TOTAL BILIRUBIN 0.4 mg/dL (<0.1-1.0); TOTAL PROTEIN 6.8 g/dL (6.4-8.2)
[2018-03-23 12:00] VITALS: BP 104/62
[2018-03-23 16:00] VITALS: BP 153/91
[2018-03-23 18:55] VITALS: BP 126/77
[2018-03-24 05:25] VITALS: BP 139/91
[2018-03-24 06:07] LABS: HEMATOCRIT 34.6 % (42.0-52.0); HEMOGLOBIN 9.6 gm/dL (14.0-18.0); MCH 16.1 pg (26.0-34.0); MCHC 27.7 g/dL (28.0-37.0); MCV 58.1 fL (80.0-100.0); RBC 5.96 mil/uL (4.50-6.00); RDW 39.3 % (10.5-14.5); WBC 11.8 thou/uL (4.0-11.0)
[2018-03-24 06:18] LABS: CALCIUM 9.6 mg/dL (8.5-10.1); CREATININE 1.3 mg/dL (0.7-1.3); MAGNESIUM 1.8 mg/dL (1.8-2.4); POTASSIUM 3.9 mmol/L (3.5-5.1)
[2018-03-24 09:13] VITALS: BP 115/67
[2018-03-24 12:00] VITALS: BP 125/82
[2018-03-24 17:30] VITALS: BP 130/85
[2018-03-24 20:05] VITALS: BP 142/86
[2018-03-25 04:40] VITALS: BP 120/77
[2018-03-25 06:00] LABS: HEMATOCRIT 34.3 % (42.0-52.0); HEMOGLOBIN 9.8 gm/dL (14.0-18.0); MCH 16.7 pg (26.0-34.0); MCHC 28.6 g/dL (28.0-37.0); MCV 58.3 fL (80.0-100.0); RBC 5.88 mil/uL (4.50-6.00); RDW 39.8 % (10.5-14.5)
[2018-03-25 06:08] LABS: CALCIUM 9.8 mg/dL (8.5-10.1); CREATININE 1.4 mg/dL (0.7-1.3); MAGNESIUM 1.8 mg/dL (1.8-2.4); POTASSIUM 3.9 mmol/L (3.5-5.1)
[2018-03-25 08:04] VITALS: BP 120/77
[2018-03-25 08:56] VITALS: BP 131/83
[2018-03-25 12:13] VITALS: BP 129/76
[2018-03-25] MEDS ORDERED: FLOMAX0.4 MG PO (13:08)
[2018-03-25] MEDS ORDERED: PROTONIX 20 MG20 M1 PO (13:08)
== END 2018-03-25 15:39 | disposition home health service (06) | DRG 377 ==
LOC: ER 13:15 → EROBS 14:54 → 3W 14:54 → ENTRNSPT 03-25 15:15 → EDTRNSPTSTS 03-25 15:16 → 3W 03-25 15:39
PROVIDERS: Emergency Medicine; Internal Medicine; Nurse Practitioner
PROC: 30233N1 Transfusion of Nonautologous Red Blood Cells into Peripheral Vein, Percutaneous Approach (ICD-10-PCS; principal; 2018-03-19)
PROC: 0W3P8ZZ Control Bleeding in Gastrointestinal Tract, Via Natural or Artificial Opening Endoscopic (ICD-10-PCS; 2018-03-20)
DX: K92.2 Gastrointestinal hemorrhage, unspecified (principal); N17.0 Acute kidney failure with tubular necrosis; I12.0 Hypertensive chronic kidney disease with stage 5 chronic kidney disease or end stage renal disease; D62 Acute posthemorrhagic anemia; I69.354 Hemiplegia and hemiparesis following cerebral infarction affecting left non-dominant side; E11.22 Type 2 diabetes mellitus with diabetic chronic kidney disease; I95.9 Hypotension, unspecified; D64.9 Anemia, unspecified; R26.9 Unspecified abnormalities of gait and mobility; R33.9 Retention of urine, unspecified; K31.819 Angiodysplasia of stomach and duodenum without bleeding; I25.10 Atherosclerotic heart disease of native coronary artery without angina pectoris; N40.0 Benign prostatic hyperplasia without lower urinary tract symptoms; M62.84 Sarcopenia; E78.5 Hyperlipidemia, unspecified; F17.210 Nicotine dependence, cigarettes, uncomplicated; Z79.84 Long term (current) use of oral hypoglycemic drugs; Z79.899 Other long term (current) drug therapy; Z71.6 Tobacco abuse counseling
CPT/HCPCS: 10879; 62110; 62900; 70005

== ENCOUNTER 2018-03-26 12:49 | Inpatient (IN) | payer OTHER ==
[~2018-03-26] VITALS: Ht 180.3 cm; Wt 71.8 kg
[2018-03-26] VITALS (29 sets, daily range): BP systolic 86–138; BP diastolic 42–98
--- NOTE | ~2018-03-26 | HC ---
[facility] [place] [place] [address] CONSULTATION Name: SHANNA RINCON Room #: 350- ADM IN M.R.#: [id number] Admission: 03/26/18 Attend Phys: Marito Wagner MD Discharge: Date of : 44 Report #: [id number] THIS REPORT FOR: //name// CC: Marito Evans DATE OF SERVICE: 03/27/2018 INFECTIOUS DISEASE CONSULTATION ATTENDING PHYSICIAN: Abe Evans MD CONSULTATION WAS REQUESTED BY: Dr. Arvizu. REASON FOR CONSULTATION: Antibiotic management. HISTORY OF PRESENT ILLNESS: The patient is a 77 -[place] man recently discharged from [place] after being diagnosed with upper gastrointestinal bleeding, anemia, and chronic kidney disease. The patient is readmitted through the Emergency Room with a complaint of fatigue and shortness of air. The patient found to be hypotensive. His chest x-ray today reveals bibasilar infiltrates. The patient is mainly complaining of feeling short winded and extremely weak and also that he does not like the thickened water and juices that he is offered. I discussed the problem with aspiration, but he tells me he is having not that kind of problem. PAST MEDICAL AND SURGICAL HISTORY: CVA 10-15 years ago with some left-sided weakness, stage 3 kidney disease, diabetes mellitus, hypertension, history of lacunar infarcts per MRI. History of cerebellar infarct with incoordination, cataract surgery, appendectomy. DRUG ALLERGIES: No known drug allergies. MEDICATIONS: Unasyn 3 grams IV every 12 hours, insulin lispro per sliding scale, pantoprazole orally, loratadine, nicotine patch, aspirin enteric coated, Atrovent and albuterol inhalation treatments, tamsulosin, melatonin, p.r.n. guaifenesin, p.r.n. glucose glucagon, p.r.n. acetaminophen. The patient did receive 125 mg Solu-Medrol start yesterday. SOCIAL HISTORY: See H and P, old records. FAMILY HISTORY: See H and P, old records. REVIEW OF SYSTEMS: As above and see H and P. PHYSICAL EXAMINATION: [facility] [address] [place] [address] CONSULTATION Name: SHANNA RINCON Room #: 350-P [facility] IN .R.#: [id number] Admission: 03/26/18 Attend Phys: Marito Wagner MD Discharge: Date of : 44 Report #: [id number] GENERAL: Elderly man, chronically ill appearing, hypothermic today. VITAL SIGNS: Pulse 78, respirations 13, BP 92/62. On admission in the Emergency Room, his blood pressure was as low as 81/50 and I suspect he was dehydrated since his hemoglobin decreased on the second day of hospitalization. HEENT: Head normocephalic, atraumatic. Eyes reveal bilateral arcus cornealis and reactive pupils. Mouth revealed missing upper teeth and missing most of the molars on the jaw with some few incisors left side on the jaw. NECK: Supple. LUNGS: Few crackles at bases. HEART: S1, S2. No gallop. ABDOMEN: Soft, no masses or megaly. GENITALIA AND RECTAL: Deferred. EXTREMITIES: No clubbing, cyanosis. NEUROLOGIC: Grossly within normal limits. LABORATORY DATA: Sodium 142, potassium 4.2, BUN 31, creatinine 1.8, on admission, his creatinine was 2.6, which makes me suspect was prerenal azotemia in view of the rapid improvement. Lactic acid was normal on admission. WBC 8600, hemoglobin 9.4 g/dL, the MCV is rather low at about 60, suspect iron deficiency anemia or some type of hereditary congenital microcytic anemia, platelet count 308,000. His serum ferritin was extremely low 7 ng/mL, normal 26-388. The patient's peripheral smear revealed ovalocytosis, hugh cells, schistocytes, teardrops, and target cells. Syphilis antibody was negative in the year 2017. MICROBIOLOGY DATA: The urine culture revealed 100,000 colonies of Enterococcus species. In November of this year, he had Enterococcus faecalis and avium both sensitive to ampicillin. RADIOLOGY EVALUATION: Chest x-ray revealed a clear chest on admission, but then the patient was dehydrated. He has bibasilar pulmonary infiltrates, possibly crowding from atelectasis, poor inspiratory effort versus pneumonia. ASSESSMENT: 1. Bibasilar pulmonary infiltrate versus atelectasis. 2. Enterococcus faecalis in the urine culture. 3. Chronic kidney disease. 4. Microcytic hypochromic anemia, possible combination of iron deficiency and underlying hemoglobinopathy. 5. History of cerebrovascular accident. 6. Possible aspiration. SUGGESTIONS: Recommend obtain MRSA screen, ESR and CRP. Further evaluation of the patient's anemia per primary physician. I agree with the choice of antibiotic. Unasyn not only will cover the isolated Enterococcus in urine, but is an excellent coverage for aspiration pneumonia. [facility] [address] [place] [address] CONSULTATION Name: SHANNA RINCON Room #: 350-P ADM IN R.#: [id number] Admission: 03/26/18 Attend Phys: Marito Wagner MD Discharge: Date of : 44 Report #: [id number] Arvizu, thank you for requesting my suggestions in the care of your patient. <ELECTRONICALLY SIGNED> By: Donavan Daly MD 03/28/18 0916 1416 14 Donavan Daly MD /nt
--- NOTE | ~2018-03-26 | EKG ---
[address] [address] ELECTROCARDIOGRAM REPORT Name: SHANNA RINCON Room #: 246-P ADM IN M.R.#: [id number] Admission: 03/26/18 Attend Phys: Marito Wagner MD Discharge: Date of : 44 Report #: [id number] THIS REPORT FOR: //name// [facility] ED Test Date: 2018-03-26 Test Time: 13:14:35 Pat Name: SHANNA RINCON Department: Room: Gender: M Photographic Process Attendant: SHERRY : 1940 Requested By: Tiffanie Mac Order Number: [id number] MD: Ramsey Daly Measurements Intervals [place] Rate: 104 P: 76 [place]: 156 QRS: 60 QRSD: 81 T: 121 QT: 312 QTc: 411 Interpretive Statements Sinus tachycardia Nonspecific T abnormalities, lateral leads Compared to ECG 03/19/2018 15:00:37 T-wave abnormality now present Sinus rhythm no longer present Electronically Signed On 03-26-2018 22:27:29 CDT by Ramsey Daly [email or web address] <ELECTRONICALLY SIGNED> By: Ramsey Daly MD 03/26/18 2227 1314 1314 Ramsey Daly MD /MANUELITO
[~2018-03-26 12:49] MED LIST changes: +CLONIDINE0.1 PO; +FLOMAX0.4 MG PO; +HYDROCHLOROTHIA25 M2 PO; +LISINOPRIL2.5 MG PO; +LISINOPRIL20 MG PO; +MELATONIN5 M4 PO; +ROBITUSSIN100 MG/53 PO
[2018-03-26 13:16] LABS: RBC 6.25 mil/uL (4.50-6.00); WBC 12.1 thou/uL (4.0-11.0)
[2018-03-26 13:17] LABS: HEMATOCRIT 37.4 % (42.0-52.0); HEMOGLOBIN 10.5 gm/dL (14.0-18.0); MCH 16.8 pg (26.0-34.0); MCHC 28.2 g/dL (28.0-37.0); MCV 59.8 fL (80.0-100.0); PLATELET COUNT 308 thou/uL (150-400); RDW 41.9 % (10.5-14.5)
[2018-03-26 13:24] LABS: CALCIUM 10.1 mg/dL (8.5-10.1); POTASSIUM 4.5 mmol/L (3.5-5.1)
[2018-03-26 13:25] LABS: CREATININE 2.6 mg/dL (0.7-1.3)
[2018-03-26 13:32] LABS: ABSOLUTE NEUTROPHILS 9.1 thou/uL (1.4-8.2); METAMYELOCYTES 4 %; MYELOCYTES 1 %
[2018-03-26 13:33] LABS: ANISOCYTOSIS 3+; MICROCYTES 3+; POLYCHROMASIA SLIGHT
[2018-03-26 13:34] LABS: ALBUMIN 3.4 g/dL (3.4-5.0); DIRECT BILIRUBIN 0.1 mg/dL (<0.1-0.3); HYPOCHROMASIA 3+; TOTAL BILIRUBIN 0.3 mg/dL (<0.1-1.0); TOTAL PROTEIN 7.7 g/dL (6.4-8.2)
[2018-03-26 14:14] LABS: URINE BILIRUBIN NEGATIVE (Negative); URINE BLOOD NEGATIVE (Negative); URINE CLARITY CLEAR; URINE COLOR YELLOW; URINE GLUCOSE-RANDOM* NEGATIVE (Negative); URINE KETONES NEGATIVE (Negative); URINE LEUKOCYTES 2+ (Negative); URINE NITRITE NEGATIVE (Negative); URINE PROTEIN (DIPSTICK) NEGATIVE (Negative); URINE UROBILINOGEN 0.2 E.U./dl (0.2-1.0)
[2018-03-26 14:21] LABS: CASTS None Seen /LPF (None Seen); SQUAMOUS 0-3 Few /LPF (0-3); URINE WBC 6-15 Few /HPF (0-5)
[2018-03-26 14:22] LABS: BACTERIA 1-9 Few /HPF (None Seen); CRYSTALS None Seen /LPF (None Seen); URINE RBC None Seen /HPF (0-2)
[2018-03-26 18:04] LABS: HEMATOCRIT 34.2 % (42.0-52.0); HEMOGLOBIN 9.5 gm/dL (14.0-18.0)
[2018-03-27] VITALS (25 sets, daily range): BP systolic 92–144; BP diastolic 62–99
[2018-03-27 00:26] LABS: HEMATOCRIT 35.4 % (42.0-52.0); HEMOGLOBIN 9.8 gm/dL (14.0-18.0); MCH 16.7 pg (26.0-34.0); MCHC 27.7 g/dL (28.0-37.0); MCV 60.1 fL (80.0-100.0); RBC 5.88 mil/uL (4.50-6.00); RDW 42.1 % (10.5-14.5); WBC 8.6 thou/uL (4.0-11.0)
[2018-03-27 00:34] LABS: ALBUMIN 2.7 g/dL (3.4-5.0); CALCIUM 9.1 mg/dL (8.5-10.1); CREATININE 1.8 mg/dL (0.7-1.3); PHOSPHORUS 4.2 mg/dL (2.5-4.9); POTASSIUM 4.2 mmol/L (3.5-5.1)
[2018-03-27 07:14] LABS: HEMATOCRIT 34.4 % (42.0-52.0); HEMOGLOBIN 9.8 gm/dL (14.0-18.0)
[2018-03-27 11:46] LABS: HEMATOCRIT 33.6 % (42.0-52.0); HEMOGLOBIN 9.4 gm/dL (14.0-18.0)
[2018-03-27 15:27] LABS: BE(vivo) -5.1 mmol/L (-2 to +3); HCO3 19.3 mmol/L (22.0-26.0); PCO2 33.6 mmHg (35.0-45.0); PO2 75.4 mmHg (80.0-100.0); pH 7.377 (7.360-7.450)
[2018-03-28 05:06] VITALS: BP 131/80
[2018-03-28 05:29] LABS: CALCIUM 9.2 mg/dL (8.5-10.1); CREATININE 1.3 mg/dL (0.7-1.3); POTASSIUM 4.4 mmol/L (3.5-5.1)
[2018-03-28 05:53] LABS: HEMOGLOBIN 10.1 gm/dL (14.0-18.0)
[2018-03-28 05:57] LABS: HEMATOCRIT 35.5 % (42.0-52.0); MCH 17.5 pg (26.0-34.0); MCHC 28.5 g/dL (28.0-37.0); MCV 61.5 fL (80.0-100.0); RBC 5.78 mil/uL (4.50-6.00); RDW 42.9 % (10.5-14.5); WBC 19.3 thou/uL (4.0-11.0)
[2018-03-28 07:00] VITALS: BP 122/74
[2018-03-28 07:37] LABS: ABSOLUTE NEUTROPHILS 12.9 thou/uL (1.4-8.2); NUCLEATED RBCS 2 /100WBC
[2018-03-28 07:49] LABS: PLATELET COUNT 249 thou/uL (150-400)
[2018-03-28 07:50] LABS: ANISOCYTOSIS 3+; PLATELET ESTIMATE NORMAL
[2018-03-28 07:51] LABS: HYPOCHROMASIA 3+; MICROCYTES 3+; TARGET CELLS 1+
[2018-03-28 07:53] LABS: BURR CELLS OCCASIONAL; POLYCHROMASIA SLIGHT
[2018-03-28 11:10] VITALS: BP 148/73
[2018-03-28 15:05] VITALS: BP 122/85
[2018-03-28 19:03] VITALS: BP 151/93
[2018-03-29 04:48] VITALS: BP 130/84
[2018-03-29 06:30] LABS: MCHC 28.2 g/dL (28.0-37.0)
[2018-03-29 06:32] LABS: HEMATOCRIT 35.1 % (42.0-52.0); HEMOGLOBIN 9.9 gm/dL (14.0-18.0); MCH 17.1 pg (26.0-34.0); MCV 60.6 fL (80.0-100.0); PLATELET COUNT 262 thou/uL (150-400); RBC 5.79 mil/uL (4.50-6.00); RDW 43.2 % (10.5-14.5); WBC 7.2 thou/uL (4.0-11.0)
[2018-03-29 06:39] LABS: CALCIUM 9.1 mg/dL (8.5-10.1); CREATININE 1.2 mg/dL (0.7-1.3); POTASSIUM 3.9 mmol/L (3.5-5.1)
[2018-03-29 07:01] LABS: ABSOLUTE NEUTROPHILS 5.3 thou/uL (1.4-8.2); HYPOCHROMASIA 2+; MICROCYTES 2+
[2018-03-29 07:02] LABS: POIKILOCYTOSIS 1+; POLYCHROMASIA SLIGHT
[2018-03-29 07:03] LABS: TARGET CELLS FEW
[2018-03-29 07:04] LABS: SCHISTOCYTES FEW
[2018-03-29 08:31] VITALS: BP 150/86
[2018-03-29 12:00] VITALS: BP 154/91
[2018-03-29 16:00] VITALS: BP 149/97
[2018-03-29 19:29] VITALS: BP 162/91
[2018-03-30 04:00] VITALS: BP 146/88
[2018-03-30 07:30] VITALS: BP 156/100
[2018-03-30 12:10] VITALS: BP 151/94
[2018-03-30 16:30] VITALS: BP 124/64
[2018-03-30 19:37] VITALS: BP 165/91
[2018-03-31 00:41] VITALS: BP 143/80
[2018-03-31 04:30] VITALS: BP 159/82
[2018-03-31 05:37] LABS: CALCIUM 9.2 mg/dL (8.5-10.1); CREATININE 1.3 mg/dL (0.7-1.3); POTASSIUM 4.4 mmol/L (3.5-5.1)
[2018-03-31 05:51] LABS: HEMATOCRIT 38.1 % (42.0-52.0); HEMOGLOBIN 10.9 gm/dL (14.0-18.0); MCH 17.7 pg (26.0-34.0); MCHC 28.7 g/dL (28.0-37.0); MCV 61.6 fL (80.0-100.0); WBC 9.5 thou/uL (4.0-11.0)
[2018-03-31 07:20] VITALS: BP 148/95
[2018-03-31 08:04] LABS: ANISOCYTOSIS 2+; HYPOCHROMASIA 2+; MICROCYTES 2+; MYELOCYTES 1 %; OVALOCYTES FEW; POIKILOCYTOSIS 1+; TEARDROPS FEW
[2018-03-31 08:05] LABS: BURR CELLS FEW; LARGE PLATELETS FEW; POLYCHROMASIA SLIGHT; TARGET CELLS FEW
[2018-03-31 08:06] LABS: PLATELET COUNT 255 thou/uL (150-400)
[2018-03-31 08:08] LABS: SCHISTOCYTES OCCASIONAL
[2018-03-31 12:50] VITALS: BP 137/88
[2018-03-31 15:59] VITALS: BP 160/83
[2018-03-31 18:50] VITALS: BP 125/104
[2018-04-01 00:12] VITALS: BP 139/74
[2018-04-01 03:18] VITALS: BP 161/98
[2018-04-01 08:07] VITALS: BP 125/88
[2018-04-01 12:22] VITALS: BP 147/72
[2018-04-01 17:45] VITALS: BP 135/89
[2018-04-01 19:20] VITALS: BP 166/92
[2018-04-02 04:15] VITALS: BP 136/73
[2018-04-02 07:08] VITALS: BP 155/97
[2018-04-02] MEDS ORDERED: AUGMENTIN 875-1 EACH PO (12:28)
[2018-04-02] MEDS ORDERED: DUONEB 2.5-0.5 M3 ML INH (12:28)
[2018-04-02] MEDS ORDERED: NOVOLOG100 UNIT/1 SUBQ (12:28)
[2018-04-02 13:54] VITALS: BP 157/94
== END 2018-04-02 15:23 | DRG 871 ==
LOC: ER 12:49 → ICU 14:00 → EROBS 14:00 → ICU 15:40 → 3W 03-27 18:19
PROVIDERS: Emergency Medicine; Hospitalist
DX: A41.9 Sepsis, unspecified organism (principal); E43 Unspecified severe protein-calorie malnutrition; R65.21 Severe sepsis with septic shock; J69.0 Pneumonitis due to inhalation of food and vomit; J96.90 Respiratory failure, unspecified, unspecified whether with hypoxia or hypercapnia; N17.9 Acute kidney failure, unspecified; N39.0 Urinary tract infection, site not specified; N18.3 Chronic kidney disease, stage 3 (moderate); E11.22 Type 2 diabetes mellitus with diabetic chronic kidney disease; I12.9 Hypertensive chronic kidney disease with stage 1 through stage 4 chronic kidney disease, or unspecified chronic kidney disease; I95.9 Hypotension, unspecified; R79.89 Other specified abnormal findings of blood chemistry; D50.9 Iron deficiency anemia, unspecified; N40.0 Benign prostatic hyperplasia without lower urinary tract symptoms; F03.90 Unspecified dementia, unspecified severity, without behavioral disturbance, psychotic disturbance, mood disturbance, and anxiety; M62.84 Sarcopenia; R33.9 Retention of urine, unspecified; B96.89 Other specified bacterial agents as the cause of diseases classified elsewhere; Z86.73 Personal history of transient ischemic attack (TIA), and cerebral infarction without residual deficits; Z90.49 Acquired absence of other specified parts of digestive tract; Z98.49 Cataract extraction status, unspecified eye; Z79.899 Other long term (current) drug therapy; Z79.82 Long term (current) use of aspirin; Z87.891 Personal history of nicotine dependence; Z79.4 Long term (current) use of insulin; Z68.22 Body mass index [BMI] 22.0-22.9, adult
CPT/HCPCS: 10203; 10779

== ENCOUNTER 2018-10-27 12:23 | Inpatient (IN) | payer OTHER ==
[~2018-10-27] VITALS: Ht 180.3 cm; Wt 66.2 kg
--- NOTE | ~2018-10-27 | EKG ---
[address] [address] ELECTROCARDIOGRAM REPORT Name: SHANNA RINCON Room #: 355-P ADM IN M.R.#: [id number] Admission: 10/27/18 Attend Phys: Marito Wagner MD Discharge: Date of : 44 Report #: [id number] THIS REPORT FOR: //name// [facility] ED Test Date: 2018-10-27 Test Time: 13:19:33 Pat Name: SHANNA RINCON Department: Room: 355 Gender: M Project Construction Assistant Manager: CONNER : 1940 Requested By: Trey Bernabe Order Number: [id number] MD: Iván Hartmann Measurements Intervals [place] Rate: 99 P: 75 PA: 177 QRS: 66 QRSD: 91 T: 77 QT: 325 QTc: 417 Interpretive Statements Sinus rhythm Nonspecific ST segment abnormality Compared to ECG 03/26/2018 13:14:35 No significant change was found Electronically Signed On 10-28-2018 8:12:46 CLINICAL TEAM LEAD by Iván Hartmann [email or web address] <ELECTRONICALLY SIGNED> By: Iván Hartmann MD, [facility] 10/28/18 0812 18 18 Iván Hartmann MD, [facility] /EPI
--- NOTE | ~2018-10-27 | HC ---
[facility] [place] [address] CONSULTATION Name: SHANNA RINCON Room #: 355-P ADM IN M.R.#: [id number] Admission: 10/27/18 Attend Phys: Marito Wagner MD Discharge: Date of : 44 Report #: [id number] THIS REPORT FOR: //name// CC: Marito Evans DATE OF SERVICE: 10/27/2018 TYPE OF REPORT: Nephrology consultation. REASON FOR CONSULTATION: Elevated creatinine. HISTORY OF PRESENT ILLNESS: This is a 78-year-old male who we have seen previously here in [facility]. He has also been followed intermittently in the office by one of my partners, Robin Kinsey M.D. The patient has a previously established diagnosis of chronic kidney disease stage 3. When he was last seen in the office in September of 2018, his creatinine was 2.2. He presents to the Emergency Room today at the behest of his primary care physician due to some hypotension. Today's BUN is 37 and creatinine 2.8. On presentation to the Emergency Room, he did have some hypotension with pressures running as low as 81/47. He received some IV fluids and remains on some IV fluids with normal saline at 150 mL an hour at this time. Blood pressure has improved somewhat. In talking with the patient, he states that he has been feeling weak of late. He states he has been eating. His sister helps him with his meals. He states he has been trying to keep fluid in. He is chronically incontinent of urine and so he is unaware of how much he has actually been making as far as urine output. He has a visiting nurse who his medications, so when I tried to review his medications with him that is also nearly impossible. PAST MEDICAL HISTORY: Multiple prior CVAs. He has a history of COPD, long-term smoker, some hypertension and type 2 diabetes and a previous diagnosis of CKD stage 3. Again, baseline creatinine runs between probably about 1.8 and 2.2. He has coronary artery disease with an MD remotely. MEDICATIONS: Listed by the Emergency Room include aspirin, Augmentin, DuoNeb inhaler, NovoLog insulin, tamsulosin, pantoprazole and doxazosin. This is dramatically different lists and was listed in the office on my review of Dr. Kinsey's last note. That included multiple antihypertensive medications including lisinopril 20 mg with hydrochlorothiazide 25 mg daily, Cardura 2 mg b.i.d., metoprolol 50 mg b.i.d., clonidine 0.2 mg at bedtime. I would note that his blood pressure during that office visit was only 90/60 and some of his meds were actually decreased including the Cardura. Nevertheless, that medication list is not at all match what was in the Emergency Room today. [address] [address] CONSULTATION Name: SHANNA RINCON Room #: 355-P ADM IN M.R.#: [id number] Admission: 10/27/18 Attend Phys: Marito Wagner MD Discharge: Date of : 44 Report #: [id number] ALLERGIES: No known medical allergies. FAMILY HISTORY: Noncontributory. SOCIAL HISTORY: The patient is single, lives in [place], [place]. He has a sister who lives with him and helps him with some of his meals and other daily activities. He is retired. REVIEW OF SYSTEMS: He has been weak. He does walk some with a walker, although it sounds like he has some difficulty walking. He has a mild cough. Denies much in the way of dyspnea, although looking at him, I would disagree with that. Denies recent chest pain or palpitations. He states his appetite has been okay. Denies problems with dysphagia. Reports no nausea, vomiting or diarrhea. Again, he is chronically incontinent of urine. He is unaware of fevers, chills or sweats. PHYSICAL EXAMINATION: GENERAL: A 78-year-old male rather elderly in appearance. VITAL SIGNS: Most recent blood pressure 107/57, heart rate 102, temperature 98.2 degrees Fahrenheit and oxygen saturation 96%. HEENT: Shows pupils are 4 mm and reactive. Sclerae nonicteric. Oral mucosa is moist. NECK: Veins are not distended. NECK: Supple. No adenopathy. CHEST: Shows some coarse breath sounds bilaterally. Few rhonchi. No wheezes. No rales. HEART: Has a regular rate and rhythm. ABDOMEN: Has active bowel sounds, is soft, nontender at this time. I cannot palpate organomegaly or masses. EXTREMITIES: Show 2+ left lower extremity edema, trace right lower extremity edema with some chronic atrophic skin changes. LABORATORY DATA: From today, sodium 138, potassium 5.2, chloride 104, bicarbonate 21, BUN 37 and creatinine 2.8. Calcium 9.8, total protein 6.9 and albumin 3.4. Normal liver function tests. CPK 219. Troponin less than 0.06. White count is 5.5; hemoglobin 8.5; hematocrit 27.6 and platelets 285,000. Urinalysis: Specific gravity greater than 1.030, pH 5.5 with negative dipstick. RADIOLOGICAL DATA: Chest x-ray showed some atelectasis. No keon infiltrate. ASSESSMENT: 1. Elevated creatinine. He has higher than his normal baseline but only by about half a point. He was hypotensive on admission and certainly likely has some prerenal component to this. Again, his last creatinine level was 2.2 that we had in the office, although he has had several hospitalizations over recent [facility] [address] [place] [address] CONSULTATION Name: SHANNA RINCON Room #: 355-P ADM IN M.R.#: [id number] Admission: 10/27/18 Attend Phys: Marito Wagner MD Discharge: Date of : 44 Report #: [id number] months with lower creatinine levels than that. At this point with his low blood pressure, agree with the IV fluids. He does have some mild lower extremity edema. So, we will not want to overload too much. I expect he should stabilize at or near his prior creatinine level. 2. Chronic kidney disease stage 3 as noted above and also, chronic urinary incontinence. 3. Prior cerebrovascular accident, no new symptoms. 4. Abnormal blood pressure. Historically, he has high blood pressure. He is listed as being on multiple different antihypertensives at the office. Blood pressure continues to be too low, so we will hold all those at this time and then try to verify what he is actually taking. 5. Prior cerebrovascular accidents. PLAN: 1. Continue current medications. 2. We will recheck labs in the morning. 3. Probably will be impossible to follow his I's and O's. 4. Look for signs or symptoms of infection. 5. We will follow along the care of this patient. By: 1937 0020 Ramon Terry MD /nt
[~2018-10-27 12:23] MED LIST changes: +AUGMENTIN 875-1 EACH PO; +DUONEB 2.5-0.5 M3 ML INH; +NOVOLOG100 UNIT/1 SUBQ
[2018-10-27 12:24] VITALS: BP 120/62
[2018-10-27 13:15] LABS: MCH 19.2 pg (26.0-34.0); WBC 5.5 thou/uL (4.0-11.0)
[2018-10-27 13:17] LABS: HEMATOCRIT 27.6 % (42.0-52.0); HEMOGLOBIN 8.5 gm/dL (14.0-18.0); MCHC 30.7 g/dL (28.0-37.0); MCV 62.6 fL (80.0-100.0); PLATELET COUNT 285 thou/uL (150-400); RBC 4.41 mil/uL (4.50-6.00); RDW 22.3 % (10.5-14.5)
[2018-10-27 13:18] LABS: ANION GAP 13 mmol/L (7-16); BUN 37 mg/dL (7-18); CALCIUM 9.8 mg/dL (8.5-10.1); CHLORIDE 104 mmol/L (98-107); CO2 21 mmol/L (21-32); CREATININE 2.8 mg/dL (0.7-1.3); GLUCOSE 115 mg/dL (74-106); POTASSIUM 5.2 mmol/L (3.5-5.1); SODIUM 138 mmol/L (136-145)
[2018-10-27 13:26] LABS: ALBUMIN 3.4 g/dL (3.4-5.0); SGOT 23 U/L (15-37); SGPT 21 U/L (30-65); TOTAL BILIRUBIN 0.1 mg/dL (<0.1-1.0); TOTAL PROTEIN 6.9 g/dL (6.4-8.2); TROPONIN-I <0.06 ng/mL (<0.06)
[2018-10-27 13:31] LABS: URINE BILIRUBIN NEGATIVE (Negative); URINE BLOOD NEGATIVE (Negative); URINE CLARITY CLEAR; URINE COLOR YELLOW; URINE GLUCOSE-RANDOM* NEGATIVE (Negative); URINE KETONES NEGATIVE (Negative); URINE LEUKOCYTES-REFLEX NEGATIVE (Negative); URINE NITRITE-REFLEX NEGATIVE (Negative); URINE PROTEIN (DIPSTICK) NEGATIVE (Negative); URINE SPECIFIC GRAVITY >= 1.030 (1.005-1.035); URINE UROBILINOGEN 0.2 E.U./dl (0.2-1.0)
[2018-10-27 14:06] LABS: NUCLEATED RBCS 1 /100WBC
[2018-10-27 14:07] LABS: HYPOCHROMASIA 2+; MICROCYTES 2+; POIKILOCYTOSIS 1+; POLYCHROMASIA OCCASIONAL; SCHISTOCYTES FEW
[2018-10-27 14:08] LABS: ANISOCYTOSIS 2+
[2018-10-27 14:12] VITALS: BP 95/60
[2018-10-27 16:40] VITALS: BP 98/49
[2018-10-27 17:05] VITALS: BP 107/57
[2018-10-27 19:38] VITALS: BP 111/57
[2018-10-27 23:44] VITALS: BP 91/55
[2018-10-28 03:23] VITALS: BP 111/68
[2018-10-28 05:03] LABS: ABSOLUTE NEUTROPHILS 3.2 thou/uL (1.4-8.2); BASOPHILS 0.5 % (0.0-2.0); HEMATOCRIT 23.9 % (42.0-52.0); HEMOGLOBIN 7.2 gm/dL (14.0-18.0); LYMPHOCYTES 7.6 % (24.0-44.0); MCH 18.9 pg (26.0-34.0); MCHC 30.2 g/dL (28.0-37.0); MCV 62.4 fL (80.0-100.0); MONOCYTES 2.1 % (1.0-8.0); PLATELET COUNT 259 thou/uL (150-400); POLYS 89.8 % (36.0-66.0); RBC 3.82 mil/uL (4.50-6.00); RDW 22.2 % (10.5-14.5); WBC 3.6 thou/uL (4.0-11.0)
[2018-10-28 05:14] LABS: CALCIUM 8.9 mg/dL (8.5-10.1); CREATININE 2.2 mg/dL (0.7-1.3); MAGNESIUM 1.9 mg/dL (1.8-2.4); POTASSIUM 5.4 mmol/L (3.5-5.1)
[2018-10-28 06:33] LABS: ANISOCYTOSIS 3+; HYPOCHROMASIA 3+; MICROCYTES 3+
[2018-10-28 06:35] LABS: SCHISTOCYTES 2+
[2018-10-28 06:36] LABS: POLYCHROMASIA 1+
[2018-10-28 07:50] VITALS: BP 123/70
[2018-10-28 19:30] VITALS: BP 136/69
[2018-10-29 07:05] LABS: HEMATOCRIT 28.8 % (42.0-52.0); HEMOGLOBIN 8.8 gm/dL (14.0-18.0); MCH 18.8 pg (26.0-34.0); MCHC 30.4 g/dL (28.0-37.0); MCV 61.9 fL (80.0-100.0); RBC 4.66 mil/uL (4.50-6.00); RDW 22.6 % (10.5-14.5)
[2018-10-29 07:23] LABS: ALBUMIN 3.1 g/dL (3.4-5.0); CALCIUM 9.6 mg/dL (8.5-10.1); CREATININE 2.2 mg/dL (0.7-1.3); PHOSPHORUS 2.9 mg/dL (2.5-4.9); POTASSIUM 4.6 mmol/L (3.5-5.1)
[2018-10-29 07:25] LABS: % SATURATION 16 % (20-39); IRON 48 ug/dL (65-175); TIBC 309 ug/dL (250-450)
[2018-10-29] MEDS ORDERED: HYDROCHLOROTHIA25 M1 PO (11:28)
[2018-10-29] MEDS ORDERED: FLONASE 0.05%50 MCG NASAL (11:30)
[2018-10-29] MEDS ORDERED: FLOMAX0.4 MG PO (11:30)
[2018-10-29] MEDS ORDERED: PROTONIX40 M1 PO (11:31)
[2018-10-29] MEDS ORDERED: BACTRIM DS TAB1 EACH PO (11:31)
[2018-10-29] MEDS ORDERED: PRAVACHOL40 MG PO (11:40)
[2018-10-29] MEDS ORDERED: ASPIR-LOW81 MG PO (11:40)
[2018-10-29] MEDS ORDERED: PATANOL5 ML OPHTHALMIC (11:41)
[2018-10-29] MEDS ORDERED: METFORMIN HCL500 MG PO (11:42)
[2018-10-29] MEDS ORDERED: LOPRESSOR50 PO (11:43)
[2018-10-29] MEDS ORDERED: SPIRIVA RESPIMAT4 G1 INH (11:45)
[2018-10-29] MEDS ORDERED: ERGOCALCIF50000 UNIT PO (11:47)
[2018-10-29 12:49] LABS: PROT/CREAT RATIO 0.2; URINE CREATININE-RANDOM* 92.9 mg/dL; URINE PROTEIN-RANDOM* 19.2 mg/dL (<11.9)
[2018-10-29 19:35] VITALS: BP 143/82
[2018-10-30 07:17] LABS: HEMATOCRIT 27.1 % (42.0-52.0); HEMOGLOBIN 8.3 gm/dL (14.0-18.0); MCH 18.7 pg (26.0-34.0); MCHC 30.5 g/dL (28.0-37.0); MCV 61.5 fL (80.0-100.0); RBC 4.41 mil/uL (4.50-6.00); RDW 22.5 % (10.5-14.5); WBC 7.7 thou/uL (4.0-11.0)
[2018-10-30 07:22] LABS: CALCIUM 9.2 mg/dL (8.5-10.1); CREATININE 1.9 mg/dL (0.7-1.3); MAGNESIUM 1.7 mg/dL (1.8-2.4); POTASSIUM 4.5 mmol/L (3.5-5.1)
[2018-10-30 08:37] VITALS: BP 120/72
[2018-10-30 12:17] VITALS: BP 120/72
[2018-10-30] MEDS ORDERED: TORSEMIDE10 MG PO (14:09)
[2018-10-30] MEDS ORDERED: PREDNISONE 10 M10 MG PO (14:11)
[2018-10-30] MEDS ORDERED: AZITHROMYCIN 2250 MG PO (14:12)
== END 2018-10-30 18:54 | disposition home health service (06) | DRG 871 ==
LOC: ER 12:23 → 3W 14:06 → SICU 14:06 → EROBS 14:06 → 3W 17:01 → SICU 10-28 16:14 → ENTRNSPT 10-30 18:35 → SICU 10-30 18:54
PROVIDERS: Emergency Medicine; Internal Medicine; Internal Medicine Nephrology; Nurse Practitioner
DX: A41.9 Sepsis, unspecified organism (principal); N17.0 Acute kidney failure with tubular necrosis; J44.1 Chronic obstructive pulmonary disease with (acute) exacerbation; I69.354 Hemiplegia and hemiparesis following cerebral infarction affecting left non-dominant side; I13.0 Hypertensive heart and chronic kidney disease with heart failure and stage 1 through stage 4 chronic kidney disease, or unspecified chronic kidney disease; E87.5 Hyperkalemia; I95.9 Hypotension, unspecified; N18.3 Chronic kidney disease, stage 3 (moderate); I25.10 Atherosclerotic heart disease of native coronary artery without angina pectoris; E11.22 Type 2 diabetes mellitus with diabetic chronic kidney disease; I50.9 Heart failure, unspecified; D50.9 Iron deficiency anemia, unspecified; J20.9 Acute bronchitis, unspecified; Z98.49 Cataract extraction status, unspecified eye; Z90.49 Acquired absence of other specified parts of digestive tract; Z87.891 Personal history of nicotine dependence; I25.2 Old myocardial infarction; Z79.82 Long term (current) use of aspirin; Z79.899 Other long term (current) drug therapy
CPT/HCPCS: 10879; 15001; 15002

== ENCOUNTER 2018-10-31 10:32 | Emergency (ER) | payer OTHER ==
[~2018-10-31] VITALS: Ht 167.6 cm; Wt 56.7 kg
--- NOTE | ~2018-10-31 | EKG ---
[address] [address] ELECTROCARDIOGRAM REPORT Name: SHANNA RINCON [id number] Admission: 10/31/18 Attend Phys: Discharge: 10/31/18 Date of : 44 Report #: [id number] THIS REPORT FOR: //name// [facility] ED Test Date: 2018-10-31 Test Time: 10:40:10 Pat Name: SHANNA RINCON Department: Room: Gender: M Commercial Housekeeper: KFRIEDT : 1940 Requested By: Moni Grissom Order Number: [id number] MD: Ramsey Daly Measurements Intervals [place] Rate: 120 P: 74 TN: 142 QRS: 43 QRSD: 78 T: 76 QT: 297 QTc: 420 Interpretive Statements Sinus tachycardia Nonspecific T abnormalities, lateral leads Compared to ECG 10/27/2018 13:19:33 T-wave abnormality now present Sinus rhythm no longer present ST (T wave) deviation no longer present Electronically Signed On 10-31-2018 20:11:11 KINESIOLOGY PROFESSOR by Ramsey Daly [email or web address] <ELECTRONICALLY SIGNED> By: Ramsey Daly MD 10/31/182010 1040 1040 Ramsey Daly MD /EPI
[~2018-10-31 10:32] MED LIST changes: +ASPIR-LOW81 MG PO; +AZITHROMYCIN 2250 MG PO; +BACTRIM DS TAB1 EACH PO; +ERGOCALCIF50000 UNIT PO; +HYDROCHLOROTHIA25 M1 PO; +LOPRESSOR50 PO; +PATANOL5 ML OPHTHALMIC; +PRAVACHOL40 MG PO; +PREDNISONE 10 M10 MG PO; +PROTONIX40 M1 PO; +SPIRIVA RESPIMAT4 G1 INH; +TORSEMIDE10 MG PO
[2018-10-31 10:56] LABS: BE(vivo) 0.8 mmol/L (-2 to +3); HCO3 24.4 mmol/L (22.0-26.0); PCO2 35.2 mmHg (35.0-45.0); PO2 61.8 mmHg (80.0-100.0); pH 7.459 (7.360-7.450)
[2018-10-31 11:00] LABS: URINE BILIRUBIN NEGATIVE (Negative); URINE BLOOD NEGATIVE (Negative); URINE CLARITY CLEAR; URINE COLOR YELLOW; URINE GLUCOSE-RANDOM* NEGATIVE (Negative); URINE KETONES NEGATIVE (Negative); URINE LEUKOCYTES-REFLEX NEGATIVE (Negative); URINE NITRITE-REFLEX NEGATIVE (Negative); URINE PROTEIN (DIPSTICK) NEGATIVE (Negative); URINE SPECIFIC GRAVITY 1.015 (1.005-1.035); URINE UROBILINOGEN 0.2 E.U./dl (0.2-1.0)
[2018-10-31 11:05] LABS: RDW 22.2 % (10.5-14.5)
[2018-10-31 11:06] LABS: HEMATOCRIT 29.5 % (42.0-52.0); HEMOGLOBIN 8.9 gm/dL (14.0-18.0); MCH 18.7 pg (26.0-34.0); MCHC 30.2 g/dL (28.0-37.0); MCV 62.1 fL (80.0-100.0); RBC 4.75 mil/uL (4.50-6.00); WBC 13.6 thou/uL (4.0-11.0)
[2018-10-31 11:07] LABS: PLATELET COUNT 366 thou/uL (150-400)
[2018-10-31 11:16] LABS: ANION GAP 12 mmol/L (7-16); BUN 37 mg/dL (7-18); CALCIUM 9.6 mg/dL (8.5-10.1); CHLORIDE 102 mmol/L (98-107); CO2 25 mmol/L (21-32); CREATININE 2.2 mg/dL (0.7-1.3); GLUCOSE 99 mg/dL (74-106); POTASSIUM 4.4 mmol/L (3.5-5.1); SODIUM 139 mmol/L (136-145)
[2018-10-31 11:24] LABS: ALBUMIN 3.6 g/dL (3.4-5.0); LIPASE 204 U/L (73-393); SGOT 44 U/L (15-37); SGPT 39 U/L (30-65); TOTAL BILIRUBIN 0.3 mg/dL (<0.1-1.0); TROPONIN-I <0.06 ng/mL (<0.06)
[2018-10-31 11:29] LABS: ABSOLUTE NEUTROPHILS 8.3 thou/uL (1.4-8.2)
[2018-10-31 11:30] LABS: ANISOCYTOSIS 2+; MICROCYTES 1+
[2018-10-31 14:18] VITALS: BP 153/92
== END 2018-10-31 14:40 | disposition home or self-care (01) ==
LOC: ER 10:32
PROVIDERS: Physician Assistant
DX: I12.9 Hypertensive chronic kidney disease with stage 1 through stage 4 chronic kidney disease, or unspecified chronic kidney disease (principal); N18.3 Chronic kidney disease, stage 3 (moderate); R33.9 Retention of urine, unspecified; D64.9 Anemia, unspecified; F41.9 Anxiety disorder, unspecified; J44.9 Chronic obstructive pulmonary disease, unspecified; E11.22 Type 2 diabetes mellitus with diabetic chronic kidney disease; Z87.891 Personal history of nicotine dependence; Z90.49 Acquired absence of other specified parts of digestive tract

== ENCOUNTER 2019-04-01 09:56 | Inpatient (IN) | payer OTHER ==
[2019-04-01] VITALS (8 sets, daily range): BP systolic 118–156; BP diastolic 52–97
[~2019-04-01] VITALS: Ht 180.3 cm; Wt 65.3 kg
--- NOTE | ~2019-04-01 | HC ---
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 He was admitted with increased fatigue, shortness of breath, noted to have a critically low hemoglobin of 4.3. He underwent an EGD showing a nonbleeding gastric AVM. Colonoscopy revealed diverticulosis. Gastroenterology recommended an outpatient capsule study. He has had an overall functional decline and we are seeing him in rehabilitation medicine consultation. He had the CVA in 2003 and has residual left-sided weakness. He had an episode of encephalopathy and required a [facility] rehabilitation stay back in 10/2017. He has a history of chronic tobacco, advanced COPD, stage 3 kidney disease, diabetes mellitus and hypertension. There is a note of chronic bilateral lacunar infarcts per MRI, left greater than right, chronic left lateral cerebellar infarct with right-sided incoordination and weakness. PAST SURGICAL HISTORY: Includes cataract surgery and appendectomy. HABITS: Former smoker, quit greater than a year ago. No history of alcohol abuse. SOCIAL HISTORY: Lives in a house with his sister, 5 steps in and then there is a stair glide to the second level. He used a quad cane at home. He uses a four-wheeled walker for longer distances. He does have a Medicaid caregiver that comes in 5 days a week for a couple of hours to assist him. REVIEW OF SYSTEMS: No current complaints of chest pain, shortness of breath or abdominal discomfort. Still feels weak, although he feels he is gradually doing better. PHYSICAL EXAMINATION: GENERAL: Slender, 78-year-old -Algerian male in no obvious distress. VITAL SIGNS: Last recorded temperature 97.4, pulse 82, respirations 17, blood pressure 117/61. NEUROLOGIC: The patient is alert, follows basic 1 step commands. His gaze appears to be conjugate. I could not detect obvious left-sided visual field neglect. He has a mild depressed left nasolabial fold. He does have some mild left-sided weakness, left upper and lower extremity, a grade 4-/5. Right upper and right lower extremity are more of a grade 4. Does have some decreased coordination. He has DTRs are grade 1. He is min assist sit to stand. Gait [facility] [address] [place] [address] CONSULTATION Name: SHANNA RINCON Room #: 354-P DIS IN M.R.#: [id number] Admission: 04/01/19 ������������������ Attend Phys: Rianna Young MD Discharge: 04/07/19 ������������������ Date of : 42 Report #: [id number] 200 feet min assist with a front-wheeled walker. Lower body dressing is mod assist. ASSESSMENT: A 78-year-old male with the following problem list: 1. Severe acute blood loss anemia. 2. Gastric arteriovenous malformation nonbleeding, status post re-cauterization. 3. History of cerebrovascular accident with residual left hemiplegia. 4. Medical complexity with generalized debilitation. 5. Chronic obstructive pulmonary disease. 6. Past history of chronic tobacco abuse. 7. Hypertension. 8. Benign prostatic hypertrophy. 9. Prior history of cerebellar infarcts. PLAN: Insurance will need to be checked regarding rehab therapy issues. We will be glad to follow along with you. ��������������������������������������������� ���������������������������������������� By: ��������������������������������������������� 1120 0232 Buddy Tellez MD /AVTAR
[2019-04-01 10:37] LABS: ANION GAP 11 mmol/L (7-16); BUN 30 mg/dL (7-18); CALCIUM 9.5 mg/dL (8.5-10.1); CHLORIDE 103 mmol/L (98-107); CO2 26 mmol/L (21-32); CREATININE 1.9 mg/dL (0.7-1.3); GLUCOSE 149 mg/dL (74-106); POTASSIUM 4.6 mmol/L (3.5-5.1); SODIUM 140 mmol/L (136-145)
[2019-04-01 10:41] LABS: MCH 11.5 pg (26.0-34.0); MCHC 24.3 g/dL (28.0-37.0); PLATELET COUNT 536 thou/uL (150-400); RBC 3.75 mil/uL (4.50-6.00); RDW 25.5 % (10.5-14.5); WBC 8.5 thou/uL (4.0-11.0)
[2019-04-01 10:43] LABS: MCV 47.4 fL (80.0-100.0)
[2019-04-01 10:47] LABS: ALBUMIN 3.5 g/dL (3.4-5.0); HEMOGLOBIN 4.3 gm/dL (14.0-18.0); SGOT 15 U/L (15-37); SGPT 15 U/L (30-65); TOTAL BILIRUBIN 0.3 mg/dL (<0.1-1.0); TOTAL PROTEIN 6.8 g/dL (6.4-8.2); TROPONIN-I <0.06 ng/mL (<0.06)
[2019-04-01 10:48] LABS: HEMATOCRIT 17.8 % (42.0-52.0)
[2019-04-01 11:24] LABS: ABSOLUTE NEUTROPHILS 7.1 thou/uL (1.4-8.2); MYELOCYTES 1 %; NUCLEATED RBCS 2 /100WBC
[2019-04-01 11:25] LABS: ANISOCYTOSIS 3+; HYPOCHROMASIA 3+; MICROCYTES 3+; SCHISTOCYTES 1+
--- NOTE | 2019-04-01 11:38 | EKG ---
[address] [address] ELECTROCARDIOGRAM REPORT Name: SHANNA RINCON Room #: 170-7 ADM IN M.R.#: [id number] ������������������ Admission: 04/01/19 ������������������ Attend Phys: Rianna Yougn MD Discharge: ������������������ Date of : 42 Report #: [id number] ����������������������������������������������������������������� [id number] THIS REPORT FOR: //name// [facility] ED Test Date: 2019-04-01 Test Time: 10:38:28 Pat Name: SHANNA RINCON Department: Room: 170 Gender: M Salesperson Flowers: WILTON : 1940 Requested By: Torie Cui Order Number: [id number] MD: Ramsey Daly Measurements Intervals [place] Rate: 100 P: 58 UT: 152 QRS: 28 QRSD: 79 T: 101 QT: 347 QTc: 448 Interpretive Statements Sinus tachycardia Probable left atrial enlargement Nonspecific T abnormalities, lateral leads Compared to ECG 10/31/2018 10:40:10 No significant changes Electronically Signed On 04-01-2019 11:38:16 CDT by Ramsey Daly [email or web address] ��������������������������������������������� <ELECTRONICALLY SIGNED> ���������������������������������������� By: Ramsey Daly MD ��������������������������������������������� 04/01/19 1138 1038 1038 Ramsey Daly MD /MANUELITO
[2019-04-01 11:49] LABS: APTT 26.8 Seconds (24.5-32.8); PROTIME 10.5 Seconds (9.3-11.4)
[2019-04-01] MEDS ORDERED: ROBITUSSIN100 MG/53 PO ×3 (11:58→13:51)
[2019-04-01] MEDS ORDERED: CARDURA4 MG PO ×3 (11:58→13:49)
[2019-04-01] MEDS ORDERED: CLARITIN10 MG PO (12:00)
[2019-04-01] MEDS ORDERED: ERGOCALCIF50000 UNIT PO ×3 (12:01→13:50)
[2019-04-01] MEDS ORDERED: CATAPRES0.2 M1 PO (12:02)
[2019-04-01] MEDS ORDERED: BACTRIM DS TAB1 EACH PO (12:02)
[2019-04-01] MEDS ORDERED: ROBAFEN100 MG/5 M PO (12:03)
[2019-04-01] MEDS ORDERED: SSD CREAM 1% 5050 GM TOP (13:26)
[2019-04-01] MEDS ORDERED: ASPIR 8181 MG PO (13:37)
[2019-04-01] MEDS ORDERED: LORATIDINE 10 M10 M1 PO ×2 (13:40→13:50)
[2019-04-01] MEDS ORDERED: MELATONIN1 M2 PO (13:40)
[2019-04-01] MEDS ORDERED: ALBUTEROL2.5 MG/31 INH (13:41)
[2019-04-01] MEDS ORDERED: HYDROCHLOROTHIA25 M2 PO (13:42)
[2019-04-01] MEDS ORDERED: FLONASE 0.05%50 MCG NASAL (13:42)
[2019-04-01] MEDS ORDERED: PROTONIX40 M1 PO (13:43)
[2019-04-01] MEDS ORDERED: FLOMAX0.4 MG PO (13:43)
[2019-04-01] MEDS ORDERED: PRAVACHOL40 M1 PO (13:44)
[2019-04-01] MEDS ORDERED: LOPRESSOR50 PO (13:45)
[2019-04-01] MEDS ORDERED: METFORMIN HCL500 MG PO (13:45)
[2019-04-01] MEDS ORDERED: PATANOL5 ML OPHTHALMIC (13:45)
[2019-04-01] MEDS ORDERED: SPIRIVA18 MCG INH (13:47)
[2019-04-01] MEDS ORDERED: PREDNISONE 10 M10 M1 PO (13:48)
[2019-04-01] MEDS ORDERED: DEMADEX20 MG PO (13:48)
[2019-04-01] MEDS ORDERED: AZITHROMYCIN 2250 MG PO (13:48)
[2019-04-01] MEDS ORDERED: ADULT WAL-100 MG/5 M PO (13:49)
[2019-04-01] MEDS ORDERED: BACTRIM DS TAB1 EACH (13:50)
[2019-04-01] MEDS ORDERED: CATAPRES0.2 MG PO (13:51)
[2019-04-01 16:52] LABS: % SATURATION 3 % (20-39); IRON 13 ug/dL (65-175); TIBC 402 ug/dL (250-450)
[2019-04-01 17:19] LABS: FOLIC ACID 13.4 ng/mL (8.6-58.9)
[2019-04-01] MEDS ORDERED: PROSCAR 5MG TABL5 MG PO (17:32)
[2019-04-02 02:10] LABS: HEMATOCRIT 23.7 % (42.0-52.0)
[2019-04-02 02:18] LABS: HEMOGLOBIN 6.5 gm/dL (14.0-18.0)
[2019-04-02 04:20] VITALS: BP 146/79
[2019-04-02 06:10] LABS: HEMATOCRIT 24.6 % (42.0-52.0)
[2019-04-02 06:16] VITALS: BP 115/59; BP 125/69
[2019-04-02 07:13] VITALS: BP 123/67
[2019-04-02 11:01] VITALS: BP 121/60
[2019-04-02 16:51] VITALS: BP 112/63
[2019-04-02 19:43] LABS: HEMATOCRIT 32.8 % (42.0-52.0)
[2019-04-02 19:44] LABS: HEMOGLOBIN 9.1 gm/dL (14.0-18.0)
[2019-04-02 20:00] VITALS: BP 117/61
[2019-04-03 04:10] VITALS: BP 135/63
[2019-04-03 05:58] LABS: MCHC 28.1 g/dL (28.0-37.0); RBC 5.29 mil/uL (4.50-6.00); RDW 42.7 % (10.5-14.5); WBC 13.4 thou/uL (4.0-11.0)
[2019-04-03 05:59] LABS: MCV 60.5 fL (80.0-100.0)
[2019-04-03 06:16] LABS: CALCIUM 9.5 mg/dL (8.5-10.1); CREATININE 1.5 mg/dL (0.7-1.3); MAGNESIUM 2.2 mg/dL (1.8-2.4); POTASSIUM 4.7 mmol/L (3.5-5.1)
[2019-04-03 07:43] VITALS: BP 148/90
[2019-04-03 12:07] VITALS: BP 172/94
[2019-04-03 14:05] VITALS: BP 148/90
[2019-04-03 15:51] VITALS: BP 136/82
[2019-04-03 19:25] VITALS: BP 142/88
[2019-04-04 03:30] VITALS: BP 127/87
[2019-04-04 05:37] LABS: HEMOGLOBIN 9.2 gm/dL (14.0-18.0); WBC 9.5 thou/uL (4.0-11.0)
[2019-04-04 05:40] LABS: HEMATOCRIT 32.3 % (42.0-52.0); MCH 17.1 pg (26.0-34.0); MCHC 28.4 g/dL (28.0-37.0); MCV 60.2 fL (80.0-100.0); RBC 5.36 mil/uL (4.50-6.00); RDW 43.4 % (10.5-14.5)
[2019-04-04 05:56] LABS: CALCIUM 9.7 mg/dL (8.5-10.1); CREATININE 1.5 mg/dL (0.7-1.3)
[2019-04-04 06:02] LABS: POTASSIUM 3.5 mmol/L (3.5-5.1)
[2019-04-04 07:39] VITALS: BP 154/98
[2019-04-04 11:20] VITALS: BP 96/62
--- NOTE | 2019-04-04 11:42 | P ---
[facility] [place] [address] PROCEDURE REPORT Name: SHANNA RINCON Room #: 354-P [facility] IN M.R.#: [id number] Admission: 04/01/19 ������������������ Attend Phys: Rianna Young MD Discharge: ������������������ Date of : 42 Report #: [id number] THIS REPORT FOR: //name// CC: INGA Young INPATIENT COLONOSCOPY REPORT: BRIEF HISTORY: The patient is a 78-year-old male with marked microcytic anemia. PREOPERATIVE DIAGNOSIS: Microcytic anemia requiring transfusion. POSTOPERATIVE DIAGNOSIS: Diverticulosis coli, right and left colon. MEDICATIONS: Deep sedation with propofol per anesthesia. SPECIMEN: None. ESTIMATED BLOOD LOSS: None. PROCEDURE: Colonoscopy to cecum. FINDINGS: Prior to propofol sedation, procedure of colonoscopy discussed with the patient as well as potential risks and its complications. He indicates he understands and desires to proceed. DESCRIPTION OF PROCEDURE: With the patient in left lateral decubitus position, digital examination was completed, which revealed no abnormalities. Subsequently, the Olympus video colonoscope was introduced in the rectum. The scope was advanced under direct vision to the cecum with minimal difficulty. The cecum was identified by the ileocecal valve and the appendiceal orifice. However, due to looping of the scope, I could not advance the tip of the scope across the ileocecal valve to visualize the ileum. At that point, the scope was slowly withdrawn and careful circumferential views were obtained. Upon slow withdrawal of the scope, the prep was good. The mucosa was within normal limits, normal vascular pattern, normal light reflex. As we withdrew the scope, no neoplastic or bleeding lesions were seen. Vascular ectasias were not seen. Blood was not seen on this examination. He had a few scattered diverticula in proximal colon. There was moderately severe left-sided diverticular disease without endoscopic evidence of diverticulitis. Again, no bleeding lesions were seen. The scope was withdrawn in the rectum and no abnormalities were seen. It was difficult to keep the rectum distended as the patient could not hold on to air in the rectum. I was unsuccessful in attempts to retroflex. The scope was slowly withdrawn through the anal canal on multiple occasions, no abnormalities were seen. Digital examination was repeated, no abnormalities were noted. The patient tolerated the procedure well. [address] [address] PROCEDURE REPORT Name: SHANNA RINCON Room #: 354-P [facility] IN M.R.#: [id number] Admission: 04/01/19 ������������������ Attend Phys: Rianna Young MD Discharge: ������������������ Date of : 42 Report #: [id number] DISPOSITION: The patient with marked microcytic anemia. A source of blood loss was not identified today. The patient would likely benefit from an M2A capsule study. This potentially could be done as an outpatient. ��������������������������������������������� <ELECTRONICALLY SIGNED> ���������������������������������������� By: Elias Maddox MD ��������������������������������������������� 04/04/19 1142 1037 1722 Elias Maddox MD /padma
--- NOTE | 2019-04-04 11:42 | P ---
[facility] [place] [address] PROCEDURE REPORT Name: SHANNA RINCON Room #: 354-P [facility] IN M.R.#: [id number] Admission: 04/01/19 ������������������ Attend Phys: Rianna Young MD Discharge: ������������������ Date of : 42 Report #: [id number] THIS REPORT FOR: //name// CC: INGA Young BRIEF HISTORY: The patient is a 78-year-old male who was admitted with marked microcytic anemia. He required transfusion. He did have anemia several years ago and upper endoscopy revealed a nonbleeding gastric AVM which was treated. PREOPERATIVE DIAGNOSIS: Marked microcytic anemia. POSTOPERATIVE DIAGNOSES: 1. Small nonbleeding AVM, body of stomach. 2. Diffuse gastritis with scattered antral erosions, nonbleeding. 3. Exudative esophagitis questionably candidiasis. MEDICATIONS: Deep sedation with propofol per anesthesia. SPECIMENS: 1. Small bowel biopsies to rule out celiac disease. 2. Biopsies of gastritis. 3. Brushing of esophagus, rule out bertin. ESTIMATED BLOOD LOSS: 3 mL. PROCEDURE: EGD with BICAP hemostasis and biopsy. FINDINGS: Prior to propofol sedation, procedure of upper endoscopy was discussed with the patient as well as potential risks and its complications. He indicates he understands and desires to proceed. DESCRIPTION OF PROCEDURE: With the patient in left lateral decubitus position, the Olympus video endoscope was inserted in the cervical esophagus under direct vision without difficulty. Examination of this organ throughout its length revealed intact esophageal mucosa; however, there was some whitish material in the esophagus, raising the possibility of Bertin esophagitis. Brushings were obtained. Scope was advanced further and the examination squamocolumnar junction revealed to be within normal limits. There is no evidence of hiatus hernia. No blood was seen. No bleeding lesions were seen. The scope was advanced in the stomach, was examined on end view as well as retroflexed views. In the body of the stomach, there was a small 3 mm nonbleeding AVM, which was destroyed with BICAP cautery. The stomach was examined on end view as well as retroflexed views on multiple passes of the scope and no additional AVMs were seen. No bleeding was seen. No ulcers were seen. The mucosa in the proximal stomach was normal. Distally, the mucosa was intact with the exception a few [facility] [address] [place] [address] PROCEDURE REPORT Name: SHANNA RINCON Room #: 354-P [facility] IN M.R.#: [id number] Admission: 04/01/19 ������������������ Attend Phys: Rianna Young MD Discharge: ������������������ Date of : 42 Report #: [id number] erosions in the antrum. Again, bleeding was not seen. The pylorus was normal. Duodenal bulb was normal. Postbulbar sweep down to the third portion was normal. At that point, the scope was slowly withdrawn and careful circumferential views obtained. Biopsies obtained of the small bowel, rule out celiac disease and biopsies obtained of the gastritis. DISPOSITION: The patient with marked microcytic anemia and nonbleeding AVM in the stomach was identified. We will follow up on biopsies obtained today. Proceed with colonoscopy for further evaluation of his marked microcytic anemia. ��������������������������������������������� <ELECTRONICALLY SIGNED> ���������������������������������������� By: Elias Maddox MD ��������������������������������������������� 04/04/19 1142 1005 1415 Elias Maddox MD /nt
[2019-04-04] MEDS ORDERED: CARDURA4 MG PO (12:39)
[2019-04-04 15:34] VITALS: BP 102/70
[2019-04-04 20:00] VITALS: BP 131/68
[2019-04-05] VITALS (7 sets, daily range): BP systolic 88–115; BP diastolic 54–74
[2019-04-06 04:35] VITALS: BP 97/63
[2019-04-06 07:50] VITALS: BP 134/75
[2019-04-06 11:44] VITALS: BP 91/49
[2019-04-06 16:56] VITALS: BP 78/56
[2019-04-06 19:40] VITALS: BP 103/53
[2019-04-07 03:00] VITALS: BP 108/68
[2019-04-07 07:32] VITALS: BP 117/61
[2019-04-07 11:45] VITALS: BP 90/48
[2019-04-07 15:27] VITALS: BP 121/66
--- NOTE | 2019-04-08 16:01 | PATH ---
[facility] [address] [place] [address] PATHOLOGY RPT PROCEDURE Name: PAXTON RINCON Room #: 354-P DIS IN M.R.#: [id number] ������������������ Admission: 04/01/19 ������������������ Date of : 42 Discharge: 04/07/19 Report #: [id number] Path Case #: [id number] [facility] Accession Number: [id number] . 01 Material submitted: . PART A: small bowel - SMALL BOWEL RX RE: IRON DEFICIENCY ANEMIA R/O CELIAC DISEASE PART B: stomach - BX GASTRITIS R/O H PYLORI . 01 Clinical history: . Pre-OP DX: Iron deficiency anemia Post-OP DX: Gastric AVM, gastritis, bertin esophagitis, diverticulosis . 02 Diagnosis: A. Small intestinal mucosa "small bowel biopsy": - No obvious diagnostic changes. - There is no evidence of acute cryptitis, granulomas, adenomatous change, sprue-like changes or malignancy. . B. Gastric mucosa "biopsy gastritis": - Mild chronic reactive gastropathy with focal chronic inflammation and focal intestinal metaplasia. - There is no evidence of atypia or malignancy. - The immunoperioxidase stain for Helicobacter pylori is negative. (SHA:shante; 04/08/2019) QMS/04/08/2019 . 02 Electronically signed: . Frank Andrade MD, Pathologist NPI- [id number] . 01 Gross description: . A. Received in formalin labeled "Paxton Rincon, small bowel BX, rule out celiac disease, Hx iron deficiency anemia," are 7 segments of bedolla soft tissue measuring 1.9 x 0.9 x 0.3 cm in aggregate dimensions and ranging from 0.2 to 0.5 cm in maximum dimension. The specimen is submitted entirely in cassette A1. . B. Received in formalin labeled "Paxton Rincon, BX gastritis, rule out H. pylori," are 4 segments of bedolla soft tissue measuring 0.8 x 0.6 x 0.3 cm in aggregate dimensions and ranging from 0.4 to 0.6 cm in maximum dimension. The specimen is submitted entirely in cassette B1. (TSD; 04/03/2019) TOB/TOB . 02 Pathologist provided ICD-10: K31.9, K29.50 [place] [address] PATHOLOGY RPT PROCEDURE Name: PAXTON RINCON Room #: 354-P DIS IN M.R.#: [id number] ������������������ Admission: 04/01/19 ������������������ Date of : 42 Discharge: 04/07/19 Report #: [id number] Path Case #: [id number] . 02 CPT . 616190, [id number], [id number] Specimen Comment: A courtesy copy of this report has been sent to Specimen Comment: [phone], , . Specimen Comment: Report sent to DR VERDUZCO,DR ARNOLD / DR MATHIS Performed at: [address], [place] [id number] MD Shashank Morrison MD Phone: [phone] Performed at: [address] [id number] MD She Morrison MD Phone: [phone]
== END 2019-04-07 17:43 | DRG 378 ==
LOC: ER 09:56 → 3W 11:21 → EROBS 11:21 → 3W 17:10 → ENTRNSPT 04-07 12:22 → EDTRNSPTSTS 04-07 12:25 → 3W 04-07 17:43
PROVIDERS: Internal Medicine; Internal Medicine Gastroenterology; Physician Assistant; ADMIT Internal Medicine
PROC: 0DB88ZX Excision of Small Intestine, Via Natural or Artificial Opening Endoscopic, Diagnostic (ICD-10-PCS; principal; 2019-04-03)
PROC: 0D568ZZ Destruction of Stomach, Via Natural or Artificial Opening Endoscopic (ICD-10-PCS; principal; 2019-04-03)
PROC: 0DB68ZX Excision of Stomach, Via Natural or Artificial Opening Endoscopic, Diagnostic (ICD-10-PCS; principal; 2019-04-03)
PROC: 0DJD8ZZ Inspection of Lower Intestinal Tract, Via Natural or Artificial Opening Endoscopic (ICD-10-PCS; principal; 2019-04-03)
PROC: 0DD58ZX Extraction of Esophagus, Via Natural or Artificial Opening Endoscopic, Diagnostic (ICD-10-PCS; principal; 2019-04-03)
DX: K92.2 Gastrointestinal hemorrhage, unspecified (principal); D62 Acute posthemorrhagic anemia; E44.0 Moderate protein-calorie malnutrition; I69.354 Hemiplegia and hemiparesis following cerebral infarction affecting left non-dominant side; K57.33 Diverticulitis of large intestine without perforation or abscess with bleeding; J43.9 Emphysema, unspecified; N18.3 Chronic kidney disease, stage 3 (moderate); E11.22 Type 2 diabetes mellitus with diabetic chronic kidney disease; K31.819 Angiodysplasia of stomach and duodenum without bleeding; K57.30 Diverticulosis of large intestine without perforation or abscess without bleeding; I12.9 Hypertensive chronic kidney disease with stage 1 through stage 4 chronic kidney disease, or unspecified chronic kidney disease; N40.0 Benign prostatic hyperplasia without lower urinary tract symptoms; K29.70 Gastritis, unspecified, without bleeding; M79.605 Pain in left leg; K25.9 Gastric ulcer, unspecified as acute or chronic, without hemorrhage or perforation; R41.81 Age-related cognitive decline; Z71.6 Tobacco abuse counseling; Z87.891 Personal history of nicotine dependence; Z68.20 Body mass index [BMI] 20.0-20.9, adult; Z90.49 Acquired absence of other specified parts of digestive tract; Z98.42 Cataract extraction status, left eye; Z98.41 Cataract extraction status, right eye; Z79.82 Long term (current) use of aspirin; Z79.84 Long term (current) use of oral hypoglycemic drugs; Z79.899 Other long term (current) drug therapy
CPT/HCPCS: 10879; 62110; 62900

== ENCOUNTER → 2019-05-21 | Outpatient (CLI) | payer OTHER ==
[~2019-05-21] MED LIST changes: +ADULT WAL-100 MG/5 M PO; +ALBUTEROL2.5 MG/31 INH; +ASPIR 8181 MG PO; +BACTRIM DS TAB1 EACH; +CATAPRES0.2 M1 PO; +DEMADEX20 MG PO; +LORATIDINE 10 M10 M1 PO; +MELATONIN1 M2 PO; +PRAVACHOL40 M1 PO; +PREDNISONE 10 M10 M1 PO; +PROSCAR 5MG TABL5 MG PO; +ROBAFEN100 MG/5 M PO; +SPIRIVA18 MCG INH; +SSD CREAM 1% 5050 GM TOP
--- NOTE | ~2019-05-21 | P ---
[facility] [place] [address] PROCEDURE REPORT Name: SHANNA RINCON Room #: REG RIC[facility] Grayson#: [id number] Admission: 05/21/19 ������������������ Attend Phys: Elias Maddox MD Discharge: ������������������ Date of : 42 Report #: [id number] THIS REPORT FOR: //name// CC: Elias Evans PROCEDURE: Small bowel capsule study. BRIEF HISTORY: The patient is a 78-year-old male who was recently admitted to [facility] with evidence of GI bleeding. Colonoscopy and upper endoscopy were nondiagnostic, except for one very small AVM in the stomach, which was treated with BICAP cautery. Due to his significant blood loss requiring transfusion, M2 capsule study was recommended. PREOPERATIVE DIAGNOSES: Anemia with gastrointestinal bleeding. POSTOPERATIVE DIAGNOSES: 1. At least one nonbleeding arteriovenous malformation, proximal small bowel. 2. Evidence of blood clot in proximal as well as distal small bowel. 3. Diffuse gastritis, without evidence of bleeding. FINDINGS: The patient presented to the GI lab and swallowed the M2 capsule for study. The images were reviewed. Small bowel passage time was 4 hours and 29 minutes. He was noted to have diffuse gastritis. In the duodenum and very proximal jejunum, there was at least one nonbleeding AVM. However, distal to this area, and no additional AVMs were seen. It is noted that the prep was limited at the distal small bowel. However, there were some very small bright red clots and streaks of blood in the proximal small bowel and there were somewhat larger clots and some blackish material in the distal small bowel. Again, only one AVM was seen and it was in the very proximal small bowel. The patient shows evidence of continued gastrointestinal blood loss. We will obtain a CBC for further evaluation. We will have the patient return at a later date for a push small bowel endoscopy to try to identify and treat vascular ectasia at the proximal small bowel. ��������������������������������������������� ���������������������������������������� By: ��������������������������������������������� 1147 1323 Elias Maddox MD /nt
== END | disposition home or self-care (01) ==
LOC: GI 07:59
DX: K55.20 Angiodysplasia of colon without hemorrhage (principal); K29.70 Gastritis, unspecified, without bleeding; I12.9 Hypertensive chronic kidney disease with stage 1 through stage 4 chronic kidney disease, or unspecified chronic kidney disease; N18.9 Chronic kidney disease, unspecified; N40.0 Benign prostatic hyperplasia without lower urinary tract symptoms; J44.9 Chronic obstructive pulmonary disease, unspecified; F41.9 Anxiety disorder, unspecified; Z86.73 Personal history of transient ischemic attack (TIA), and cerebral infarction without residual deficits; Z87.440 Personal history of urinary (tract) infections; Z86.79 Personal history of other diseases of the circulatory system; Z79.82 Long term (current) use of aspirin; Z79.899 Other long term (current) drug therapy

== ENCOUNTER → 2019-05-29 | Outpatient (CLI) | payer OTHER ==
[~2019-05-29] VITALS: Ht 180.3 cm; Wt 63.5 kg
[~2019-05-29] MED LIST changes: +COREG6.25 MG PO; +LISINOPRIL5 MG PO
--- NOTE | 2019-05-29 17:04 | P ---
[facility] [place] [address] PROCEDURE REPORT Name: SHANNA RINCON [facility] [id number] Admission: 05/29/19 ������������������ Attend Phys: Elias Maddox MD Discharge: ������������������ Date of : 42 Report #: [id number] THIS REPORT FOR: //name// CC: Elias Evans MD BRIEF HISTORY: The patient is a 78-year-old male who has had recurrent GI bleeding. Colonoscopy and upper endoscopy was completed and he was found to have a single nonbleeding AVM in the stomach, which was cauterized. He subsequently had a small bowel capsule study and in the very proximal jejunum, there was a segment of bright red blood. One nonbleeding AVM was seen. He presents today for small bowel endoscopy. PREOPERATIVE DIAGNOSIS: Recurrent upper gastrointestinal bleeding. POSTOPERATIVE DIAGNOSES: 1. Multiple arteriovenous malformations of the proximal jejunum. 2. Diffuse gastritis. MEDICATIONS: Deep sedation with propofol per anesthesia. SPECIMEN: None. ESTIMATED BLOOD LOSS: None related to procedure. PROCEDURE: Small bowel endoscopy with hemostasis. FINDINGS: Prior to propofol sedation, procedure of small bowel endoscopy and intervention was discussed with the patient as well as potential risks and its complications. He indicates he understands and desires to proceed. DESCRIPTION OF PROCEDURE: With the patient in left lateral decubitus position, we initially started the procedure with the Olympus small bowel push enteroscope. The scope was advanced in the cervical esophagus without difficulty. Examination of this organ through its entire length revealed normal esophageal mucosa down the squamocolumnar junction. Squamocolumnar junction was inspected and noted to be unremarkable. The scope was advanced into the stomach, was examined on end view as well as retroflexed views. No blood was seen. No AVMs were seen. He had diffuse gastritis. The pylorus was unremarkable. The scope was advanced into the duodenal sweep. However, upon advancement of the scope, significant looping was encountered and the scope would not advance beyond the duodenum. The scope was withdrawn and we restarted the procedure with the Olympus pediatric colonoscope. We were able to advance the scope into the proximal jejunum without difficulty. In the proximal jejunum, we initially saw an AVM that was not obviously bleeding. This was treated. We then saw a small amount of bright red blood. We carefully examined [address] [address] PROCEDURE REPORT Name: SHANNA RINCON Room #: REG [facility].#: [id number] Admission: 05/29/19 ������������������ Attend Phys: Elias Maddox MD Discharge: ������������������ Date of : 42 Report #: [id number] this area and now particularly to the segment, no additional sites were noted. We advanced the scope further into the jejunum and 2 additional AVMs were seen. There were about 3 or 4 questionable AVMs. All the AVMs and questionable lesions were treated. We advanced the scope into the mid jejunum. Upon slow withdrawal of the scope, we carefully examined the mucosa. No additional abnormalities were seen. An occasional small blood clot was seen proximally, but no additional AVMs or bleeding lesions were seen. Scope was withdrawn. The patient tolerated the procedure well. CONDITION OF THE PATIENT UPON DISCHARGE: Following procedure, the patient drowsy, aroused, conversant and will be discharged home when fully ambulatory. INSTRUCTIONS TO THE PATIENT AND FAMILY AT THE TIME OF DISCHARGE: We will have the patient return to the office for followup in about 6 or 8 weeks. Continue to monitor hemoglobin. Hopefully, the lesions seen today, which were treated, will reduce or stop his recurrent upper GI bleeds. ��������������������������������������������� <ELECTRONICALLY SIGNED> ���������������������������������������� By: Elias Maddox MD ��������������������������������������������� 05/29/19 1704 0938 1555 Elias Maddox MD /nt
== END | disposition home or self-care (01) ==
LOC: GI 07:32
DX: K55.20 Angiodysplasia of colon without hemorrhage (principal); K29.70 Gastritis, unspecified, without bleeding; I12.9 Hypertensive chronic kidney disease with stage 1 through stage 4 chronic kidney disease, or unspecified chronic kidney disease; E11.22 Type 2 diabetes mellitus with diabetic chronic kidney disease; N18.3 Chronic kidney disease, stage 3 (moderate); K21.9 Gastro-esophageal reflux disease without esophagitis; J43.9 Emphysema, unspecified; E78.00 Pure hypercholesterolemia, unspecified; D64.9 Anemia, unspecified; N40.0 Benign prostatic hyperplasia without lower urinary tract symptoms; F41.8 Other specified anxiety disorders; Z87.891 Personal history of nicotine dependence; Z98.41 Cataract extraction status, right eye; Z86.73 Personal history of transient ischemic attack (TIA), and cerebral infarction without residual deficits; Z98.42 Cataract extraction status, left eye; Z90.49 Acquired absence of other specified parts of digestive tract; Z79.899 Other long term (current) drug therapy; Z87.440 Personal history of urinary (tract) infections; Z79.82 Long term (current) use of aspirin

== ENCOUNTER 2019-08-20 20:05 | Inpatient (IN) | payer OTHER ==
[~2019-08-20] VITALS: Ht 180.3 cm; Wt 63.0 kg
[2019-08-20 20:06] VITALS: BP 142/80
[2019-08-20 20:21] LABS: HEMOGLOBIN 7.3 gm/dL (14.0-18.0); RBC 4.02 mil/uL (4.50-6.00)
[2019-08-20 20:23] LABS: HCO3 27.5 mmol/L (22.0-26.0); PCO2 47.4 mmHg (35.0-45.0); PO2 148.9 mmHg (80.0-100.0); pH 7.381 (7.360-7.450); sO2 98.9 % (92.0-98.0)
[2019-08-20 20:23] LABS: HEMATOCRIT 24.4 % (42.0-52.0); MCH 18.1 pg (26.0-34.0); MCHC 29.9 g/dL (28.0-37.0); MCV 60.5 fL (80.0-100.0); PLATELET COUNT 370 thou/uL (150-400); WBC 10.6 thou/uL (4.0-11.0)
[2019-08-20 20:25] LABS: ANION GAP 6 mmol/L (7-16); BUN 18 mg/dL (7-18); CHLORIDE 103 mmol/L (98-107); CO2 30 mmol/L (21-32); CREATININE 1.4 mg/dL (0.7-1.3); GLUCOSE 111 mg/dL (74-106); POTASSIUM 4.7 mmol/L (3.5-5.1); SODIUM 139 mmol/L (136-145)
[2019-08-20 20:34] LABS: ALBUMIN 2.7 g/dL (3.4-5.0); SGOT 18 U/L (15-37); SGPT 26 U/L (30-65); TOTAL BILIRUBIN 0.2 mg/dL (<0.1-1.0); TOTAL PROTEIN 6.7 g/dL (6.4-8.2); TROPONIN-I <0.06 ng/mL (<0.06)
[2019-08-20] MEDS ORDERED: VITAMIN D35000 UNI1 PO (20:38)
[2019-08-20] MEDS ORDERED: IRON325 PO (20:39)
[2019-08-20] MEDS ORDERED: ADULT WAL-100 MG/5 M PO (20:41)
[2019-08-20] MEDS ORDERED: IPRAT-ALBUT 0.5-3 ML INH (20:43)
[2019-08-20] MEDS ORDERED: PROAIR HFA8.5 GM INH (20:43)
[2019-08-20] MEDS ORDERED: SYMBICORT160 MCG/4. INH (20:53)
[2019-08-20 21:01] LABS: ABSOLUTE NEUTROPHILS 7.8 thou/uL (1.4-8.2); MICROCYTES 2+; TARGET CELLS FEW
[2019-08-20 21:02] LABS: ANISOCYTOSIS 3+; HYPOCHROMASIA 2+; POLYCHROMASIA OCCASIONAL
[2019-08-20 21:03] LABS: SCHISTOCYTES OCCASIONAL
[2019-08-20 22:20] VITALS: BP 125/69
[2019-08-20 22:55] VITALS: BP 128/67
[2019-08-21] VITALS (7 sets, daily range): BP systolic 127–147; BP diastolic 58–87
--- NOTE | 2019-08-21 05:27 | NUR ---
ASSUMED CARE OF PT AROUND 2229. PT ADMITTED FROM ED. PT ON BIPAP AND TOLERATING WELL. PT WAS GIVEN ATIVAN IN ED DUE TO ANXIOUSNESS AND HAS BEEN SLEEP SINCE GETTING SETTLED ONTO FLOOR. PT WILL RESPOND TO NAME BUT UNABLE TO ASK QUESTIONS. PT SISTER WHO IS DPOA AND BROTHER WERE AT BEDSIDE AND COMPLETED ADMISSION BEST POSSIBLE WITH THEM. PT HAS WOUND ON RLE THAT HAS BEEN DOCUMENTED AND PHOTO IN CHART. CONSENTS HAVE BEEN SIGNED. WILL CONTINUE TO MONITOR PT ACCORDING TO POC.
[2019-08-21 05:36] LABS: HEMATOCRIT 23.1 % (42.0-52.0); HEMOGLOBIN 6.8 gm/dL (14.0-18.0)
[2019-08-21 05:38] LABS: MCHC 29.4 g/dL (28.0-37.0); MCV 61.3 fL (80.0-100.0); RBC 3.77 mil/uL (4.50-6.00); RDW 22.7 % (10.5-14.5); WBC 10.2 thou/uL (4.0-11.0)
[2019-08-21 05:58] LABS: CALCIUM 9.2 mg/dL (8.5-10.1); CREATININE 1.2 mg/dL (0.7-1.3); POTASSIUM 4.6 mmol/L (3.5-5.1)
--- NOTE | 2019-08-21 08:03 | EKG ---
[place] [address] [facility] [place] [address] ELECTROCARDIOGRAM REPORT Name: SHANNA RINCON Room #: 215-P ADM IN M.R.#: [id number] Admission: 08/20/19 Attend Phys: Rianna Young MD Discharge: Date of : 42 Report #: [id number] THIS REPORT FOR: //name// 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 : 1940 Requested By: Giovanni Johnson Order Number: [id number] MD: Iván Hartmann Measurements Intervals [place] Rate: 115 P: 73 MN: 155 QRS: 64 QRSD: 97 T: -75 QT: 328 QTc: 454 Interpretive Statements Sinus tachycardia Nonspecific ST and T wave abnormality Compared to ECG 04/01/2019 10:38:28 Nonspecific change in the ST and T-wave segments Electronically Signed On 08-21-2019 8:03:31 CDT by Iván Hartmann [email or web address] <ELECTRONICALLY SIGNED> By: Iván Hartmann MD, [facility] 08/21/19 0803 12 12 Iván Hartmann MD, [facility] /EPI
[2019-08-21 10:22] LABS: OBSERVED RETIC COUNT 2.18 % (0.6-2.6)
[2019-08-21 10:27] LABS: % SATURATION 3 % (20-39); IRON 9 ug/dL (65-175); TIBC 281 ug/dL (250-450)
--- NOTE | 2019-08-21 14:44 | NUR ---
met with patient who admits with copd exacerbation. Patient with hx of CVA. Patient currently at [facility]. Dtr reports she cannot afford the bed hold at [facility]. She plans to gather patients belongings but hopeful a bed avail for him at in. Plan to update facility. He has not rec oxygen or CPAP at facility per family at bedside. [facility] [phone]
--- NOTE | 2019-08-21 15:55 | NUR ---
PT RESIDES AT [facility] FAXED CLINICAL UPDATE TO FACILITY SPOKE WITH PATO AND HE RECEIVED UPDATE AND THAT PT WILL NOT DC OVER WEEKEND.
--- NOTE | 2019-08-21 16:11 | NUR ---
PT REFUSING OXYGEN AT THIS TIME.
[2019-08-21 16:49] LABS: HEMATOCRIT 27.5 % (42.0-52.0); HEMOGLOBIN 8.6 gm/dL (14.0-18.0)
--- NOTE | 2019-08-21 16:49 | NUR ---
HUMIDIFIED PT'S OXYGEN, PT AGREED TO PUT BACK ON OXYGEN.
[2019-08-22 04:30] VITALS: BP 136/78
--- NOTE | 2019-08-22 04:36 | NUR ---
RECEIVED PT'S CARE AROUND 192; PT. A0X4; ON 2L O2; RELATIVE AT THE BED SIDE; PT. REQUESTED TO DRINK WATER; MECHANICAL CHOP DIET; EDUCATED ABOUT DRINKING THICK LIQUIDS; PT. UPSET; ST. DOES NOT LIKE THICK LIQUIDS; SITTING AT THE BED SIDE OF THE BED WITHOUT CALLING FOR ASSISTANCE; EDUCATED ABOUT FALL PREVENTIONS; PT. UPSET; DURING ASSESSMENT NO C/O PAIN; 02 SAT ABOVE 95%; HS MEDICATION GIVEN; REQUESTED PRN SLEEP MEDICATION; GIVEN; EDUCATED ABOUT CALLING BEFORE GETTING OUT OF BED; ST. UNDERSTANDING; EDUCATED ABOUT THE IMPORTANCE OF TURNING FROM SIDE TO SIDE; ST. UNDERSTANDING; ST. ABLE TO TURN FROM SIDE TO SIDE; ABLE TO REST WITH EYES CLOSED; MONITORING; ASSESSMENT CHARGED; FOLLOWING POC; WILL PASS ON REPORT;
[2019-08-22 06:32] LABS: HEMATOCRIT 29.1 % (42.0-52.0); HEMOGLOBIN 8.8 gm/dL (14.0-18.0); MCH 19.9 pg (26.0-34.0); MCHC 30.2 g/dL (28.0-37.0); MCV 65.8 fL (80.0-100.0); RBC 4.42 mil/uL (4.50-6.00); RDW 28.3 % (10.5-14.5); WBC 10.1 thou/uL (4.0-11.0)
[2019-08-22 06:40] LABS: CREATININE 1.4 mg/dL (0.7-1.3); POTASSIUM 4.4 mmol/L (3.5-5.1)
[2019-08-22 07:37] VITALS: BP 148/69
[2019-08-22 11:50] VITALS: BP 140/66
[2019-08-22 15:40] VITALS: BP 162/82
--- NOTE | 2019-08-22 16:14 | NUR ---
Assumed pt care this am, refused to take honey thick liquids despite his severe coughing episode this am when he drank hi coffee. Pt would often requst coffee through out the day. Speech was consulted and nectar thick liquid is recommended and if pt coughs again to go to honey thick. Pt tolerated the honey tick apple juice and does not complain. External shine in place draining light yellow urine. Pt was able to work with PT and walked the halls. Pt stayed on the recliner for half of the day. On 1L of O2 via NC, no signs or verbalizations of distress have been noted. POC followed. Pt did not have a BM today will endorse to the night nurse for stool sample to be given once had.
[2019-08-23] VITALS (7 sets, daily range): BP systolic 144–175; BP diastolic 86–109
--- NOTE | 2019-08-23 17:59 | NUR ---
PATIENT DISCHARGED TO HOME ACCOMPANIED BY , DISCHARGE INSTRUCTIONS GIVEN, STATED UNDERSTANDING.
--- NOTE | 2019-08-23 18:02 | NUR ---
PATIENT CARE ASSUMED, ASSESSMENT CHARTED, VSS, PATIENT UP IN CHAIR, NO COMPLAINTS OF PAIN, EXTERNAL MALE CATHETER IN PLACE, WILL CONTINUE TO MONITOR
[2019-08-24 04:00] VITALS: BP 162/88
--- NOTE | 2019-08-24 04:01 | NUR ---
ASSUMED PT CARE AT 1900. PT C/O NO PAIN. REPLACED EXTERNAL CATH ON PT IT SLIPPED OFF. PT WAS NOT HAPPY WITH HONEY THICK LIQUIDS. PT SLEPT THRU NIGHT. WILL CONTINUE TO MONITOR PER POC.
[2019-08-24 05:05] LABS: HEMATOCRIT 32.2 % (42.0-52.0); HEMOGLOBIN 9.9 gm/dL (14.0-18.0); MCHC 30.6 g/dL (28.0-37.0); MCV 65.5 fL (80.0-100.0); RBC 4.92 mil/uL (4.50-6.00); RDW 29.5 % (10.5-14.5); WBC 10.8 thou/uL (4.0-11.0)
[2019-08-24 05:11] LABS: CALCIUM 9.5 mg/dL (8.5-10.1); CREATININE 1.4 mg/dL (0.7-1.3); POTASSIUM 4.5 mmol/L (3.5-5.1)
[2019-08-24 05:54] LABS: FOLIC ACID 5.8 ng/mL (8.6-58.9)
[2019-08-24 08:26] VITALS: BP 150/88
--- NOTE | 2019-08-24 12:42 | NUR ---
PT WAS FROM [facility] THEY WERE NOT ABLE TO HOLD PT'S BED SO FAXED A NEW REFERRAL AND SPOKE WITH SRIKANTH AT FACILITY SHE RECEIVED REFERRAL AND WILL HAVE HEATHER IN ADM TO REVIEW AND LET ME KNOW BED STATUS. DP TO FOLLOW.
--- NOTE | 2019-08-24 14:07 | NUR ---
PATIENT REPORTS PLAN TO RETURN TO [facility] FOR REHAB. SP WITH SISTER ZOE WHO REPORTS THAT IS PLAN. SHE QUESTIONS IF HE WILL NEED CONT OXYGEN AND REPORTS IF NEW DIET ORDER FOR THICKENED PATIENT WILL NOT DRINK IT. [facility] REPORTS AT THIS TIME BED AVAIL. FAMILY DID NOT UTILIZE BED HOLD POLICY. PHYS REPORTS PATIENT LIKELY READY FOR DC IN NEXT COUPLE OF DAYS. WILL REQUEST [facility] START AUTH PROCESS.
--- NOTE | 2019-08-24 14:27 | NUR ---
ASSUMED CARE AT 0700, SHIFT ASSESSMENT DONE, MEDS GIVEN, VSS. DENIES PAIN, NAUSEA, VOMITING. HAD A BM TODAY, STOOL SAMPLE SENT. REMAINS ON 2L NC. 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 WILL CONTINUE TO ASSESS AND ASSIST WITH ADLs NEEDED.
[2019-08-24 16:54] VITALS: BP 157/89
[2019-08-24 19:50] VITALS: BP 151/70
[2019-08-25 04:25] VITALS: BP 166/86
--- NOTE | 2019-08-25 05:35 | NUR ---
ASSUMED PT CARE AT 1900. PT VSS. PT C/O NO PAIN. PT ON 1L O2. PT REMOVED O2 DURING NIGHT BUT DID NOT HAVE GOOD SATURATION PLACED BACK ON 1L AND O2 STAT WAS ADEQUATE. PT WILL HAVE SWALLOW STUDY TODAY. WILL CONTINUE TO MONITOR PER POC.
[2019-08-25 08:38] VITALS: BP 153/88
[2019-08-25 12:27] VITALS: BP 138/82
--- NOTE | 2019-08-25 15:32 | NUR ---
SPOKE WITH LINDSEY AT [facility] TO FACILITATE SKILLED AUTH PROCESS. SHE CONFIRMS [facility] IS NOT IN THEIR SKILLED NETWORK AND THEY HAVE GIVEN NO SKILLED AUTH FOR THIS PT. DISCUSSED WITH LIN SALGADO WHO CALLED [facility] AND SPOKE WITH DICER MACHINE OPERATOR WHO CONFIRMED PT IS AT [facility] CARE PRIVATE PAY MEDICAID PENDING. LIN SALGADO WAS INFORMED BY [facility] ADMISSIONS DEPT 08/24/19 PT WAS SKILLED REHAB AT WOULD SUBMIT FOR AUTH TO RETURN. DO NOT NEED AUTH FOR RETURN TO FACILITY AND DICER MACHINE OPERATOR CONFIRMS BED AVAILABLE 08/26/19. HOSPITALIST UPDATED.
[2019-08-25 16:00] VITALS: BP 148/85
[2019-08-25 20:48] VITALS: BP 107/57
[2019-08-26 04:55] VITALS: BP 104/46
--- NOTE | 2019-08-26 05:05 | NUR ---
ASSUMED PT CARE AT 1900. VSS. PT A&0X4. HONEY LIKE CONSISTENCY FLUIDS MAINTAINED, SWALLOWED PM PILLS FINE. PT STILL INCONTINENT. CONDOM CATH IN PLACE. 02 SATS ARE FINE IN THE HIGHER 90s, PT REFUSED BIPAP LAST NIGHT. PT IS STABLE SLEPT WELL FOR THE NIGHT, WILL CONTINUE TO MONITOR PER POC.
[2019-08-26 07:28] VITALS: BP 169/83
[2019-08-26 11:38] VITALS: BP 117/55
[2019-08-26] MEDS ORDERED: ACETAMINOPHEN325 M1 PO (12:21)
[2019-08-26] MEDS ORDERED: RAYOS5 MG PO (12:21)
[2019-08-26] MEDS ORDERED: CARVEDILOL12.5 MG PO (12:21)
[2019-08-26] MEDS ORDERED: MIRALAX17 GM PO (12:21)
--- NOTE | 2019-08-26 13:46 | NUR ---
PT DISCHARGING TODAY BACK TO [facility] FAXED DC ORDERS/SUMMARY TO FACILITY RECEIVED CONFIRMATION SPOKE WITH [facility] IN ADM THAT TRANSPORT ARRANGED FOR [id number]. NOTIFIED PT'S SISTER OF DC AND TIME OF TRANSPORT. UNIT NOTIFIED AND CHART COPY PER US. RN TO CALL REPORT TO [phone].
== END 2019-08-26 15:45 | DRG 189 ==
LOC: ER 20:05 → 2N 21:49 → EROBS 21:49 → 2N 22:30
PROVIDERS: Emergency Medicine; Internal Medicine; Internal Medicine Geriatric Medicine; Nurse Practitioner Family; ADMIT Internal Medicine
DX: J96.21 Acute and chronic respiratory failure with hypoxia (principal); I13.0 Hypertensive heart and chronic kidney disease with heart failure and stage 1 through stage 4 chronic kidney disease, or unspecified chronic kidney disease; E44.0 Moderate protein-calorie malnutrition; N17.9 Acute kidney failure, unspecified; D62 Acute posthemorrhagic anemia; I69.354 Hemiplegia and hemiparesis following cerebral infarction affecting left non-dominant side; Z68.1 Body mass index [BMI] 19.9 or less, adult; F01.50 Vascular dementia, unspecified severity, without behavioral disturbance, psychotic disturbance, mood disturbance, and anxiety; I48.91 Unspecified atrial fibrillation; N18.3 Chronic kidney disease, stage 3 (moderate); E11.22 Type 2 diabetes mellitus with diabetic chronic kidney disease; K21.9 Gastro-esophageal reflux disease without esophagitis; J43.9 Emphysema, unspecified; E11.36 Type 2 diabetes mellitus with diabetic cataract; N40.0 Benign prostatic hyperplasia without lower urinary tract symptoms; D50.9 Iron deficiency anemia, unspecified; I50.9 Heart failure, unspecified; J96.22 Acute and chronic respiratory failure with hypercapnia; I27.20 Pulmonary hypertension, unspecified; R13.10 Dysphagia, unspecified; Z98.42 Cataract extraction status, left eye; Z98.41 Cataract extraction status, right eye; Z90.49 Acquired absence of other specified parts of digestive tract; Z79.82 Long term (current) use of aspirin; Z79.84 Long term (current) use of oral hypoglycemic drugs; Z79.899 Other long term (current) drug therapy; Z87.891 Personal history of nicotine dependence; Z83.3 Family history of diabetes mellitus; Z80.9 Family history of malignant neoplasm, unspecified
CPT/HCPCS: 10081

== ENCOUNTER → 2019-12-18 | Outpatient (CLI) | payer OTHER ==
[~2019-12-18] MED LIST changes: +ACETAMINOPHEN325 M1 PO; +CARVEDILOL12.5 MG PO; +IPRAT-ALBUT 0.5-3 ML INH; +IRON325 PO; +MEGESTROL400 MG/11 PO; +MIRALAX17 GM PO; +PROAIR HFA8.5 GM INH; +RAYOS5 MG PO; +SYMBICORT160 MCG/4. INH; +VITAMIN D35000 UNI1 PO
[2019-12-18 10:25] VITALS: BP 122/73
[2019-12-18 12:23] VITALS: BP 137/61
--- NOTE | 2019-12-18 12:38 | NUR ---
IN FOR 1ST OF 2 INJECTAFER INFUSIONS FOR IRON DEFICIENCY ANEMIA. ADMISSION HISTORY AND ASSESSMENT COMPLETED. MEDICATIONS RECONCILED. IV PLACED IN LAC. TOLERATED INFUSION WITHOUT INCIDENT. OBSERVED FOR 30 MINUTES. POST BP GOOD. REMOVED IV AND DISMISSED IN STABLE CONDITION. PATIENT'S SISTER TAYLA BROUGHT PATIENT IN AND HELPED WITH HISTORY AND MEDICATIONS. TO RETURN NEXT SATURDAY FOR 2ND INFUSION.
== END ==
LOC: OPONC 10:01
DX: I12.9 Hypertensive chronic kidney disease with stage 1 through stage 4 chronic kidney disease, or unspecified chronic kidney disease (principal); N18.3 Chronic kidney disease, stage 3 (moderate); D63.1 Anemia in chronic kidney disease; E61.1 Iron deficiency
CPT/HCPCS: 95000

== ENCOUNTER → 2019-12-25 | Outpatient (CLI) | payer OTHER ==
[2019-12-25 10:20] VITALS: BP 138/77
[2019-12-25 11:55] VITALS: BP 128/63
--- NOTE | 2019-12-25 12:09 | NUR ---
IN FOR 2ND INJECTAFER INFUSION. STATED TOLERATED 1ST DOSE WELL WITH NO SIDE EFFECTS NOTED. STATED FEELING STRONGER SINCE RECEIVING INFUSION LAST WEEK. IV STARTED IN LAC AND INFUSED INJECTAFER OVER 30 MINUTES. TOLERATED WELL. OBSERVED FOR 30 MINUTES. POST VITAL SIGNS GOOD. REMOVED IV AND DISMISSED IN STABLE CONDITION.
== END ==
LOC: OPONC 09:24
DX: N18.3 Chronic kidney disease, stage 3 (moderate) (principal); D63.1 Anemia in chronic kidney disease
CPT/HCPCS: 95000